=== PATIENT | female | born 1955 | race Caucasian/White ===

== ENCOUNTER 2018-02-02 07:41 | Emergency (ER) | payer BC ==
[2018-02-02 08:11] VITALS: BMI 29.0
[2018-02-02] MEDS ORDERED: SODIUM CHLORIDE 1,000 ML IV STA (08:15)
--- NOTE | 2018-02-02 08:20 | PDOC ---
History of Present Illness - General Chief Complaint: Diarrhea Stated Complaint: NAUSEA, DIARRHEA Time Seen by Provider: 02/02/18 07:58 - History of Present Illness Initial Comments: 02/02/18 09:09 "The patient is a 62 year old female with a significant past medical history of HIV (VL undetectable, CD4 count unknown) and hypertrophic cardiomyopathy who presents to the emergency department for evaluation of diarrhea. The patient reports a 2 week history of diarrhea (5-10 episodes per day) with associated diffuse abdominal cramping. The patient describes the diarrhea as soft and yellowish in color, not watery. She reports an associated symptom of nausea, but denies vomiting. Denies F/C. Denies blood in stool or dark tarry stools. The patient denies taking medication for the aforementioned symptoms. She denies sick contact and recent travels. The patient denies chest pain, shortness of breath, headache, and dizziness. Denies fevers, chills, vomiting, constipation, and hematochezia/melena. Denies dysuria, frequency, urgency, and hematuria. Allergies: NKDA Past surgical history: Ablation, Hysterectomy. Social history: No reported cigarette, alcohol, or drug use. PCP: Dr. Seymour Jc (not on staff) " Past History - Past Medical History Allergies/Adverse Reactions: Allergies Allergy/AdvReac Type Severity Reaction Status Date / Time No Known Allergies Allergy Verified 02/02/18 07:48 Home Medications: Ambulatory Orders Ciprofloxacin [Cipro -] 500 mg PO Q12H #14 tablet 02/02/18 metroNIDAZOLE [Flagyl -] 500 mg PO DAILY #7 tablet 02/02/18 Cardiac Disorders: Yes (hypertrophic cardio myopathy) COPD: No - Surgical History Cardiac Surgery: Yes - Suicide/Smoking/Psychosocial Hx Smoking History: Never smoked Review of Systems - Review of Systems Comments:: 02/02/18 09:13 "GENERAL/CONSTITUTIONAL: No fever or chills. No weakness. HEAD, EYES, EARS, NOSE AND THROAT: No change in vision. No ear pain or discharge. No sore throat. CARDIOVASCULAR: No chest pain or shortness of breath. RESPIRATORY: No cough, wheezing, or hemoptysis. GASTROINTESTINAL: (+)Nausea. (+)Diarrhea. No vomiting or constipation. GENITOURINARY: No dysuria, frequency, or change in urination. MUSCULOSKELETAL: (+)Abdominal cramping. No joint or muscle swelling or pain. No neck or back pain. SKIN: No rash NEUROLOGIC: No headache, vertigo, loss of consciousness, or change in strength/ sensation. ENDOCRINE: No increased thirst. HEMATOLOGIC/LYMPHATIC: No anemia, easy bleeding, or history of blood clots. ALLERGIC/IMMUNOLOGIC: No hives or skin allergy. " *Physical Exam - Vital Signs Last Vital Signs Temp Pulse Resp BP Pulse Ox 98.2 F 59 L 18 119/69 99 02/02/18 07:45 02/02/18 07:45 02/02/18 07:45 02/02/18 07:45 02/02/18 07:45 - Physical Exam Comments: 02/02/18 09:13 "GENERAL: Awake, alert, and fully oriented, in no acute distress. HEAD: No signs of trauma EYES: PERRLA, EOMI, sclera anicteric, conjunctiva clear ENT: Auricles normal inspection, hearing grossly normal, nares patent, oropharynx clear without exudates. Moist mucosa NECK: Nontender, no stepoffs, Normal ROM, supple, no lymphadenopathy, JVD, or masses LUNGS: Breath sounds equal, clear to auscultation bilaterally. No wheezes, and no crackles HEART: Regular rate and rhythm, normal S1 and S2, no murmurs, rubs or gallops ABDOMEN: Soft, nontender, normoactive bowel sounds. No guarding, no rebound. No masses EXTREMITIES: Normal range of motion, no edema. No clubbing or cyanosis. No cords , erythema, or tenderness NEUROLOGICAL: Cranial nerves II through XII intact. 5/5 strength and sensation in all extremities, Normal speech, normal gait, normal cerebellar function SKIN: Warm, Dry, normal turgor, no rashes or lesions noted. " ED Treatment Course - LABORATORY CBC & Chemistry Diagram: 02/02/18 08:50 02/02/18 08:50 Medical Decision Making - Medical Decision Making 02/02/18 08:18 62 F with HIV presenting with 2 weeks of diarrhea and abdominal cramps. Pt with no abdominal tenderness on exam. Reportedly normal CD4 count and undetectable VL. No indication for imaging at this time. - Labs - IVF - Empiric tx with cipro/flagyl 02/02/18 10:34 Labs wnl, eosinophils slightly elevated, unclear if this is related to pt's diarrhea. Will start abx and give GI f/u for possible colonoscopy/biopsy for further evaluation. Pt is well appearing, with normal vitals. Clinically stable for DC at this time. I discussed the physical exam findings, ancillary test results and final diagnoses with the patient. I answered all of the patient's questions. The patient was satisfied with the care received and felt comfortable with the discharge plan and treatment plan. The patient agrees to follow up with the primary care physician within 24-72 hours. *DC/Admit/Observation/Transfer Diagnosis at time of Disposition: Diarrhea - Discharge Dispostion Disposition: HOME - Prescriptions Prescriptions: Ciprofloxacin [Cipro -] 500 mg PO Q12H #14 tablet metroNIDAZOLE [Flagyl -] 500 mg PO DAILY #7 tablet - Referrals Referrals: ON STAFF,NOT [Primary Care Provider] - - Patient Instructions Printed Discharge Instructions: DI for Diarrhea and Traveler's Diarrhea -- Adult Additional Instructions: Take the antibiotics as prescribed. Call your primary doctor for a follow up appointment within 48 hours. You will need stool cultures sent to determine the cause of your diarrhea. You should also see a GI doctor if your diarrhea does not resolve within a few days. Call the number provided to make an appointment. If you experience worsening diarrhea, abdominal pain, fevers, or any other concerning symptoms, return to the ER immediately. - Post Discharge Activity - Attestations Physician Attestion: 02/02/18 10:38 I, Dr. Wei Cavazos MD, attest that this document has been prepared under my direction and personally reviewed by me in its entirety. I further attest, that it accurately reflects all work, treatment, procedures and medical decision -making performed by me.
[2018-02-02 09:28] LABS: BASO % 0.6 % (0-2.0); EOS % 27.3 % (0-4.5); HEMATOCRIT 41.4 % (32.4-45.2); HEMOGLOBIN 14.1 GM/dL (10.7-15.3); LYMPH % 24.2 % (8-40); MCH 32.8 pg (25.7-33.7); MCHC 34.1 g/dl (32.0-36.0); MEAN CELL VOLUME 96.4 fl (80-96); MEAN PLT VOLUME 9.3 fl (7.5-11.1); MONO % 5.3 % (3.8-10.2); NEUT % 42.6 % (42.8-82.8); PLATELET COUNT 174 K/MM3 (134-434); RDW 12.8 % (11.6-15.6); WHITE BLOOD COUNT 6.6 K/mm3 (4.0-10.0)
[2018-02-02 10:04] LABS: ANION GAP 4 (8-16); BLOOD UREA NITROGEN 17 mg/dL (7-18); CHLORIDE 108 mmol/L (98-107); CO2 29 mmol/L (21-32); GLUCOSE,RANDOM 97 mg/dL (74-106); POTASSIUM 4.2 mmol/L (3.5-5.1); SODIUM 141 mmol/L (136-145)
[2018-02-02 10:07] LABS: ALK PHOS 62 U/L (45-117); BILIRUBIN,TOTAL 0.2 mg/dL (0.2-1.0); CREATININE 0.9 mg/dL (0.55-1.02); SGOT/AST 14 U/L (15-37); SGPT/ALT 24 U/L (12-78); TOT PROT 7.8 g/dl (6.4-8.2)
[2018-02-02 10:51] VITALS: BP 124/85; PULSE 56; TEMP 97.9
[2018-02-02 10:52] LABS: PLATELET ESTIMATE ADEQUATE
== END 2018-02-02 10:51 | disposition home or self-care (01) ==
LOC: JER 07:41
PROC: 3E0337Z Introduction of Electrolytic and Water Balance Substance into Peripheral Vein, Percutaneous Approach (ICD-10-PCS; principal; 2018-02-02)
DX: R19.7 Diarrhea, unspecified (principal); Z21 Asymptomatic human immunodeficiency virus [HIV] infection status; I42.2 Other hypertrophic cardiomyopathy
CPT/HCPCS: 36415; 80053; 83690; 85025; 99282-25; J7030

== ENCOUNTER 2018-11-14 11:30 | Inpatient (IN) | payer BC ==
[2018-11-14] MEDS ORDERED: SODIUM CHLORIDE 1,000 ML IV ONE (12:19)
--- NOTE | 2018-11-14 12:19 | PDOC ---
History of Present Illness - General Chief Complaint: Altered Mental Status Stated Complaint: MEMORY LOSS Time Seen by Provider: 11/14/18 12:03 History Source: Patient Exam Limitations: No Limitations, Clinical Condition - History of Present Illness Initial Comments: 63 yo F w a pmh of HIV unknown CD4, HTN, HLD, and hypertrophic cardiomyopathy presents to the ER with acute onset forgetfulness. The daughters who are at bedside state that patient was completely normal yesterday when she went to sleep. They were speaking with her all day and she was her normal self. Today, when the patient woke up, the patient called her daughter crying hysterically because the patient said she could not remember what was going on and she is confused. The patient does not know how old she is, what year it is, or what month it is. She does know her birthday and that she is in a hospital in [place]. The patient endorses mild lightheadedness but feels steady on her feet. She also endorses mild chronic constipation. As per : Patient has HIV that is well controlled with an undetectable viral load and she takes ART every day and is great about taking her meds. She takes 3 pills every day but they don't know the name of the meds. also states that the patient has been losing her breath going up a flight of stairs recently. She has additionally experienced a recent 10 Ib weight loss and has not been eating or drinking well for 3-4 weeks. Her brother has the same heart condition, and her mother of the same heart condition around the same age as the patient is now. The patient denies any current chest pain, back pain, abdominal pain, headache, blurry vision, dizziness, dysuria, frequency, urgency, diarrhea, recent fevers, chills, or infections. Patient Relations Coordinator: Ronn Simons [phone]. Cell - [phone] PCP + HIV Doc: Dr. Jc [phone]. He is currently on vacation. Allergies: NKDA, NKA Social Hx: Denies smoking, drinking, or other substance usage PSH: Cardiac ablation, hysterectomy. Meds: Travastatin - 20 mg, Metoprolol - 100 mg, Flonase - nasal spray, biktarvy - 50/200/25 mg Past History - Past Medical History Allergies/Adverse Reactions: Allergies Allergy/AdvReac Type Severity Reaction Status Date / Time No Known Allergies Allergy Verified 11/14/18 11:40 Home Medications: Ambulatory Orders Bictegrav/Emtricit/Tenofov Ala [Biktarvy 50-200-25 mg Tablet] 1 tab PO DAILY Fluticasone Prop 0.05% Nasal [Flonase -] 1 spray PRN 11/14/18 Metoprolol Succinate [Toprol XL -] 100 mg PO DAILY 11/14/18 Pravastatin Sodium 20 mg PO DAILY 11/14/18 Cardiac Disorders: Yes (hypertrophic cardio myopathy) COPD: No - Surgical History Cardiac Surgery: Yes - Suicide/Smoking/Psychosocial Hx Smoking History: Never smoked Information on smoking cessation initiated: No Hx Alcohol Use: No Drug/Substance Use Hx: No Review of Systems - Review of Systems Able to Perform ROS?: Yes Comments:: CONSTITUTIONAL: Present: generalized weakness, malaise, loss of appetite, fatigue Absent: fever, chills, diaphoresis HEENT: Absent: rhinorrhea, nasal congestion, throat pain, throat swelling, difficulty swallowing, mouth swelling, ear pain, eye pain, visual Changes CARDIOVASCULAR: Absent: chest pain, syncope, palpitations, irregular heart rate, lightheadedness , peripheral edema RESPIRATORY: Present: Dyspnea with exertion Absent: cough, shortness of breath, orthopnea, wheezing, stridor, hemoptysis GASTROINTESTINAL: Present: Constipation Absent: abdominal pain, abdominal distension, nausea, vomiting, diarrhea, melena , hematochezia GENITOURINARY: Absent: dysuria, frequency, urgency, hesitancy, hematuria, flank pain, genital pain MUSCULOSKELETAL: Absent: myalgia, arthralgia, joint swelling SKIN: Absent: rash, itching, pallor HEMATOLOGIC/IMMUNOLOGIC: Absent: easy bleeding, easy bruising, lymphadenopathy, frequent infections ENDOCRINE: Present: unexplained weight loss Absent: unexplained weight gain, heat intolerance, cold intolerance NEUROLOGIC: Absent: headache, focal weakness or paresthesias, dizziness, unsteady gait, seizure, mental status changes, bladder or bowel incontinence PSYCHIATRIC: Absent: anxiety, depression, suicidal or homicidal ideation, hallucinations. *Physical Exam - Vital Signs Last Vital Signs Temp Pulse Resp BP Pulse Ox 98.2 F 61 18 120/78 100 11/14/18 11:37 11/14/18 11:37 11/14/18 11:37 11/14/18 11:37 11/14/18 11:37 - Physical Exam Comments: GENERAL: Well developed, well nourished. Awake and alert. mild distress due to confusion. HEENT: Normocephalic, atraumatic. PERRLA, EOMI. No conjunctival pallor. Sclera are non- icteric. Moist mucous membranes. Oropharynx is clear. NECK: Supple. Full ROM. No JVD. No thyromegaly. No lymphadenopathy. CARDIOVASCULAR: Regular rate and rhythm. No murmurs, rubs, or gallops. Distal pulses are 2+ and symmetric. PULMONARY: No evidence of respiratory distress. Lungs clear to auscultation bilaterally. No wheezing, rales or rhonchi. ABDOMINAL: Soft. Non-tender. Non-distended. No rebound or guarding. No organomegaly. Normoactive bowel sounds. MUSCULOSKELETAL Normal range of motion at all joints. No bony deformities or tenderness. No CVA tenderness. EXTREMITIES: No cyanosis. No clubbing. No edema. No calf tenderness. SKIN: Warm and dry. Normal capillary refill. No rashes. No jaundice. NEUROLOGICAL: Alert, awake, appropriate. Cranial nerves 2-12 intact. No deficits to light touch in face, upper extremities and lower extremities. No motor deficits in the in face, upper extremities and lower extremities. Normoreflexic in the upper and lower extremities. Normal speech. Toes are down-going bilaterally. Gait is normal without ataxia. PSYCHIATRIC: Cooperative. Good eye contact. Appropriate mood and sad affect. Heart Score/ECG Review - History History: Slightly suspicious - Electrocardiogram EKG: Non specific repolarization disturbance - Age Age: 45-65 - Risk Factors Risk Factors Heart Score: Yes Hx Hypercholesterolemia, Yes Hx Hypertension, Yes Positive family hx of cardiac disease Based on the list above the patient has:: >/=3 risk factors or Hx atherosclerotic disease - ECG Intrepretation Rhythm: Regular Rhythm - [place]: Normal - P and [place] Prominent R with upright T in V1 (true posterior TN): No Delta Wave(s) Present: No WPW: No - QRS Increased Voltage: Precordial Leads Poor R Wave Progression: No Q Wave Present: No - ST and T Non Specific ST-T Wave changes: Yes Flattened T Waves: Yes Comment:: Diffusely inverted T waves - ECG Impressions Normal ECG: No Non-specific ST Elevation: No Ischemic Changes: Yes (T wave inversions) Bradycardia: No Torsades sherry Pointes: No WPW: No ED Treatment Course - LABORATORY CBC & Chemistry Diagram: 11/14/18 13:09 11/14/18 13:09 Medical Decision Making - Medical Decision Making 63 yo F w a pmh of HIV unknown CD4, HTN, HLD, and hypertrophic cardiomyopathy presents to the ER with acute onset forgetfulness starting this morning. VS: WNL DDx IBNLT: HIV related disease, Transient global amnesia, CVA/TIA, ACS/TN, orthostatic hypotension. - Recent loss of appetite, and weight loss Plan: Labs, Urine, EKG, CXR, Head CT, Admit. - Will get Neuro consult - Dr. Melissa - Will call PCP office to obtain CD4 count info - Called up Dr. Jc's office: on Aug 27 2018 the HIV viral load was 34 and her CD4 count was 926. Troponin elevated to 0.5 Spoke with Patient Relations Coordinator: She saw the patient on Sunday. hx of HCM, septal ablation. 2 days ago patient mentioned she had Afib. Cardio doc has done holter monitors wo seeing Afib but the patient does have non-sustained VT occasionally. Dr. Trevino [phone] would like a call back after the head CT is performed. - Patient Relations Coordinator was made aware of the positive troponin of 0.5 She recommends trending the troponin. - Her coronary calcium score was 27 in Jul 2017 Primary vessel captain believes this is demand but wants the troponins trended. - She does not have access to this hospital so would like a vessel captain in the hospital to assess her as well. Microblogged for admission at 2:30 - Patient accepted for admission to Dr. Kemp's service *DC/Admit/Observation/Transfer Diagnosis at time of Disposition: Memory loss of unknown cause, Elevated troponin - Discharge Dispostion Condition at time of disposition: Stable Decision to Admit order: Yes - Referrals - Patient Instructions - Post Discharge Activity
--- NOTE | 2018-11-14 12:55 | PDOC ---
Attending Attestation - Resident Resident Name: Syed Cuevas - ED Attending Attestation I have performed the following: I have examined & evaluated the patient, The case was reviewed & discussed with the resident, I agree w/resident's findings & plan, Exceptions are as noted - HPI HPI: 11/14/18 12:52 63-year-old female history of HIV with presumably normal viral load, hypertension, hyperlipidemia, hypertrophic cardiomyopathy presents with amnesia. This morning, the family noted the patient has been very forgetful. However, denies any headaches, nausea, vomiting, fevers, chills, pain. The patient is alert and aware oriented 2. The symptoms are not waxing or waning. The family reports that the patient did have a history of a mini stroke. - Physicial Exam PE: 11/14/18 12:52 GENERAL: Awake, alert, oriented x 2, amnesitic, in no acute distress HEAD: No signs of trauma EYES: EOMI, sclera anicteric, conjunctiva clear ENT: Auricles normal inspection, hearing grossly normal, nares patent, Moist mucosa NECK: Normal ROM, supple, LUNGS: Breath sounds equal, clear to auscultation bilaterally. No wheezes, and no crackles HEART: Regular rate and rhythm, normal S1 and S2, no murmurs, rubs or gallops ABDOMEN: Soft, nontender,. No guarding, no rebound. No masses EXTREMITIES: Normal range of motion, no edema. No clubbing or cyanosis. No cords, erythema, or tenderness NEUROLOGICAL: Cranial nerves II through XII intact. Normal speech, 5/5 strength upper and lower extremities. No pronator drift. No dysmetria. No dysarthria. No heel to nunez. SKIN: Warm, Dry, normal turgor, no rashes or lesions noted. - Medical Decision Making 11/14/18 12:51 Vital Signs Temp Pulse Resp BP Pulse Ox 98.2 F 61 18 120/78 100 11/14/18 11:37 11/14/18 11:37 11/14/18 11:37 11/14/18 11:37 11/14/18 11:37 Differential includes stroke versus transient global amnesia. We'll need a head CT, labs, urinalysis. The patient will need a neuro consult and admission to the hospital.Will likely need MRI. 11/14/18 12:55 Not a TPA candidate. NIHSS 0. Too low of NIHSS. 11/14/18 14:[address] negative. CBC, BMP 11/14/18 13:09 11/14/18 14:17 CMP Sodium 140 mmol/L (136-145) 11/14/18 13:09 Potassium 5.1 mmol/L (3.5-5.1) 11/14/18 13:09 Chloride 106 mmol/L (98-107) 11/14/18 13:09 Carbon Dioxide 28 mmol/L (21-32) 11/14/18 13:09 Anion Gap 7 MMOL/L (8-16) L 11/14/18 13:09 BUN 16 mg/dL (7-18) 11/14/18 13:09 Creatinine 1.0 mg/dL (0.55-1.3) 11/14/18 13:09 Creat Clearance w eGFR 56.18 (>60) 11/14/18 13:09 Random Glucose 113 mg/dL (74-106) H 11/14/18 13:09 Calcium 9.3 mg/dL (8.5-10.1) 11/14/18 13:09 Total Bilirubin 0.4 mg/dL (0.2-1) 11/14/18 13:09 AST 32 U/L (15-37) 11/14/18 13:09 ALT 29 U/L (13-61) 11/14/18 13:09 Alkaline Phosphatase 56 U/L (45-117) 11/14/18 13:09 Ammonia 10.20 umol/L (11-32) L 11/14/18 13:09 Creatine Kinase 174 U/L (26-192) 11/14/18 13:09 Troponin I 0.50 ng/ml (0.00-0.05) H 11/14/18 13:09 Total Protein 8.3 g/dl (6.4-8.2) H 11/14/18 13:09 Albumin 4.4 g/dl (3.4-5.0) 11/14/18 13:09 Trop 0.50, but no chest pain. Will give aspirin. Will consult cardiology and neuro for further management Admit Heart Score/ECG Review #1 ECG reviewed & interpreted by me at: 12:00 11/14/18 13:27 NSR 60, LVH, TWI I, aVL, V2-V6, no std/troy, QTC 464 msec NIH Stroke Scale - Last Known Well Date/Time & Onset Date Last Known Well: 11/14/18 Time Last Known Well: 09:00 - Initial Evaluation Level of consciousness: Alert Ask patient the month and their age: Answers both correctly Ask patient to open & close eyes; make fist and let go: Obeys both correctly Best gaze (horizontal eye movement): Normal Visual field testing: No visual field loss Facial paresis (Show teeth/raise eyebrows/close eyes tight): Normal symmetrical movement Motor Function: Left Arm: Normal Motor Function: Right Arm: Normal (extends arm 90 (or 45) degrees for 10 seconds without drift Motor Function: Left Leg: Normal (extends leg 30 degrees for 5 seconds without drift) Motor Function: Right Leg: Normal (extends leg 30 degrees for 5 seconds without drift) Limb Ataxia: No ataxia Sensory(Use pinprick test arms,legs,trunk,face/side to side): Normal Best language (Describe picture, name items, read sentences): No Aphasia Dysarthria (read several words): Normal articulation Extinction and Inattention: No abnormality - Total Score NIH Stroke Scale Score: 0
[2018-11-14 13:33] LABS: BASO % 0.4 % (0-2.0); EOS % 0.7 % (0-4.5); HEMATOCRIT 43.1 % (32.4-45.2); HEMOGLOBIN 14.4 GM/dL (10.7-15.3); LYMPH % 14.7 % (8-40); MCH 32.2 pg (25.7-33.7); MCHC 33.5 g/dl (32.0-36.0); MEAN PLT VOLUME 9.4 fl (7.5-11.1); MONO % 4.5 % (3.8-10.2); NEUT % 79.7 % (42.8-82.8); PLATELET COUNT 214 K/MM3 (134-434); RBC 4.49 M/mm3 (3.60-5.2); RDW 13.1 % (11.6-15.6); WHITE BLOOD COUNT 7.8 K/mm3 (4.0-10.0)
[2018-11-14 13:46] LABS: INR 0.98 (0.83-1.09); PROTHROMBIN TIME (PATIENT) 11.6 SEC (9.7-13.0)
[2018-11-14 14:12] LABS: ALBUMIN 4.4 g/dl (3.4-5.0); ALK PHOS 56 U/L (45-117); ANION GAP 7 MMOL/L (8-16); BILIRUBIN,TOTAL 0.4 mg/dL (0.2-1); BLOOD UREA NITROGEN 16 mg/dL (7-18); CALCIUM 9.3 mg/dL (8.5-10.1); CHLORIDE 106 mmol/L (98-107); CO2 28 mmol/L (21-32); GLUCOSE,RANDOM 113 mg/dL (74-106); POTASSIUM 5.1 mmol/L (3.5-5.1); SGOT/AST 32 U/L (15-37); SGPT/ALT 29 U/L (13-61); SODIUM 140 mmol/L (136-145); TOT PROT 8.3 g/dl (6.4-8.2)
[2018-11-14] MEDS ORDERED: ASPIRIN 325 MG TABLET PO ONE (14:17)
[2018-11-14] MEDS ORDERED: ASPIRIN 325 MG TABLET ONE (14:43)
[2018-11-14 16:09] LABS: URINE APPEARANCE CLEAR; URINE BILIRUBIN NEGATIVE (NEGATIVE); URINE COLOR YELLOW; URINE GLUCOSE (UA) NEGATIVE (NEGATIVE); URINE KETONE NEGATIVE (NEGATIVE); URINE LEUK ESTERASE NEGATIVE (NEGATIVE); URINE NITRITE NEGATIVE (NEGATIVE); URINE PROTEIN NEGATIVE (NEGATIVE); URINE UROBILINOGEN 0.2 mg/dL (0.2-1.0)
--- NOTE | 2018-11-14 16:22 | HP ---
CHIEF COMPLAINT: PCP: Database Administration Project Manager: Ronn Simons [phone]. Cell - [phone] PCP + HIV Doc: Dr. Jc [phone]. He is currently on vacation. HISTORY OF PRESENT ILLNESS: 63 yo F PMH of HIV (per PCP, viral load 34 and CD4 count 926 on Aug 27 2018), HTN, HLD, TIA?, and hypertrophic cardiomyopathy p/w acute onset confusion and short term amnesia. The daughters who are at bedside state that patient was completely normal yesterday when she went to sleep. They were speaking with her all day and she was her normal self. Today, when the patient woke up she was fine, spoke w/ daughter at 9am and was fine. At 915am pt called her daughter back and was crying hysterically because the patient said she could not remember what was going on and she is confused. The patient endorses mild lightheadedness but feels steady on her feet. She also endorses mild chronic constipation. Per ED note: The patient did not know how old she is, what year it is, or what month it is. She does know her birthday and that she is in a hospital in [place]. However, currently does know the month and the year and on MMSE scored a 26, ( pt could not recall 3 items, and date). pt has no issues w/ intermediate memory, remembers when her daughter is getting , and what she did yesterday. Denies any current chest pain, back pain, abdominal pain, headache, blurry vision, dizziness, dysuria, frequency, urgency, diarrhea, recent fevers, chills , or infections, herbal med use, hallucinations, recent stressors. As per : Patient has HIV that is well controlled and she takes ART every day and is great about taking her meds. also states that the patient has been losing her breath going up a flight of stairs recently. She has additionally experienced a recent 10 Ib weight loss, not been eating or drinking well for 3-4 weeks, but this is intentional as pt has been trying to lose weight. Per ED: Spoke with pt's Database Administration Project Manager, She saw the patient on Sunday. hx of HCM , septal ablation. 2 days ago patient mentioned she had Afib. Cardio doc has done holter monitors wo seeing Afib but the patient does have non-sustained VT occasionally. Her coronary calcium score was 27 in Jul 2017 ER course was notable for: (1)EKG NSR 60, LVH, TWI I, aVL, V2-V6, no std/troy, QTC 464 msec. Trop 0.50, but no chest pain. (2)ASA 325, 1L NS (3)CXR no acute pathology, Head CT negative. NIHSS 0 Recent Travel: denies PAST MEDICAL HISTORY: Database Administration Project Manager: Ronn Simons [phone]. Cell - [phone] PCP + HIV Doc: Dr. Jc [phone]. He is currently on vacation. PAST SURGICAL HISTORY: Cardiac ablation, hysterectomy. Social History: Smoking: denies Alcohol:denies Drugs: denies Family History: brother and mom hypertrophic cardiomyopathy. mother from it around 60yrs old Allergies No Known Allergies Allergy (Verified 11/14/18 11:40) HOME MEDICATIONS: Home Medications Medication Instructions Recorded Ciprofloxacin [Cipro -] 500 mg PO Q12H #14 tablet 02/02/18 metroNIDAZOLE [Flagyl -] 500 mg PO DAILY #7 tablet 02/02/18 Meds: pravastatin - 20 mg, Metoprolol - 100 mg, Flonase - nasal spray, biktarvy - 50/200/25 mg per PCP records REVIEW OF SYSTEMS per HPI PHYSICAL EXAMINATION Vital Signs - 24 hr 11/14/18 11/14/18 11:37 15:20 Temperature 98.2 F 98.4 F Pulse Rate 61 Pulse Rate [ 67 Apical] Respiratory 18 16 Rate Blood Pressure 120/78 Blood Pressure 146/67 [Right] O2 Sat by Pulse 100 94 L Oximetry (%) GENERAL: AOX3 NAD, NIHSS 0, MMSE 26, short term amnesia, intermediate memory appears to be intact HEAD: NCAT EYES: PERRLA, EOMI, sclera anicteric, conjunctiva clear. No lid lag. EARS, NOSE, THROAT: nares patent, oropharynx clear without exudates. MMM NECK: Normal range of motion, supple without lymphadenopathy, JVD, or masses. LUNGS: CTAB HEART: RRR, normal S1 and S2 without m/r/g ABDOMEN: Soft, NTND, normoactive bowel sounds, no guarding, no rebound, no masses. No hepatomegaly or splenomegaly. MUSCULOSKELETAL: Normal range of motion at all joints. No bony deformities or tenderness. No CVA tenderness. UPPER EXTREMITIES: 2+ pulses, warm, well-perfused. No cyanosis. No clubbing. No peripheral edema. LOWER EXTREMITIES: 2+ pulses, warm, well-perfused. No calf tenderness. No peripheral edema. NEUROLOGICAL: Cranial nerves II-XII intact. Normal speech. Normal gait. FNT nl , sensation strength reflexes grossly intact PSYCHIATRIC: Cooperative. Good eye contact. Appropriate mood and affect. SKIN: Warm, dry, normal turgor, no rashes or lesions noted, normal capillary refill. Laboratory Results - last 24 hr 11/14/18 11/14/18 11/14/18 13:09 13:09 13:09 WBC 7.8 RBC 4.49 Hgb 14.4 Hct 43.1 MCV 96.0 MCH 32.2 MCHC 33.5 RDW 13.1 Plt Count 214 D MPV 9.4 Absolute Neuts (auto) 6.2 Neutrophils % 79.7 D Lymphocytes % 14.7 D Monocytes % 4.5 Eosinophils % 0.7 D Basophils % 0.4 Nucleated RBC % 0 PT with INR 11.60 INR 0.98 Sodium 140 Potassium 5.1 Chloride 106 Carbon Dioxide 28 Anion Gap 7 L BUN 16 Creatinine 1.0 Creat Clearance w eGFR 56.18 Random Glucose 113 H Calcium 9.3 Total Bilirubin 0.4 AST 32 ALT 29 Alkaline Phosphatase 56 Ammonia Creatine Kinase 174 Creatine Kinase Index 1.6 CK-MB (CK-2) 2.8 Troponin I 0.50 H Total Protein 8.3 H Albumin 4.4 Urine Color Urine Appearance Urine pH Ur Specific [place] Urine Protein Urine Glucose (UA) Urine Ketones Urine Blood Urine Nitrite Urine Bilirubin Urine Urobilinogen Ur Leukocyte Esterase Blood Type Antibody Screen 11/14/18 11/14/18 11/14/18 13:09 13:09 15:05 WBC RBC Hgb Hct MCV MCH MCHC RDW Plt Count MPV Absolute Neuts (auto) Neutrophils % Lymphocytes % Monocytes % Eosinophils % Basophils % Nucleated RBC % PT with INR INR Sodium Potassium Chloride Carbon Dioxide Anion Gap BUN Creatinine Creat Clearance w eGFR Random Glucose Calcium Total Bilirubin AST ALT Alkaline Phosphatase Ammonia 10.20 L Creatine Kinase Creatine Kinase Index CK-MB (CK-2) Troponin I Total Protein Albumin Urine Color Yellow Urine Appearance Clear Urine pH 8.0 Ur Specific [place] 1.004 L Urine Protein Negative Urine Glucose (UA) Negative Urine Ketones Negative Urine Blood Negative Urine Nitrite Negative Urine Bilirubin Negative Urine Urobilinogen 0.2 Ur Leukocyte Esterase Negative Blood Type O POSITIVE Antibody Screen Negative ASSESSMENT/PLAN: 63 yo F PMH of HIV (per PCP, viral load 34 and CD4 count 926 on 08/27/18), HTN, HLD, TIA?, and hypertrophic cardiomyopathy p/w acute onset confusion and short term amnesia. Acute Encephalopathy (metabolic vs infx) vs stroke vs seizure - pt w/ short term amnesia, AOX3, neuro exam nl, long term care pharmacist memory appears to be intact, NIHSS 0, MMSE 26 (pt could not recall 3 items, and date), VSS, afebrile no leukocytosis or other signs of infx, CXR no acute pathology, Head CT negative. labs grossly unremarkable, ammonia nl, UA neg. will require more lab and imaging for complete w/u to r/o metabolic vs infectious causes. s/p ASA 325, 1L NS in ED Neuro consult: Belén Cardio consult: Rito ID consult: Matthias MRI/MRA w/o con ECHO carotid u/s f/u TSH, RPR, B12, Folate, Lipid panel, A1c, HSV, Lyme, CD4, HIV viral load, U- tox consider LP if labs and MRI are non diagnostic aspiration precautions seizure precautions Neuro checks PT HIV - appears stable (per PCP, viral load 34 and CD4 count 926 on 08/27/18). Only is aware of her HIV status, daughters not aware CD4, HIV viral load ID consult: Matthias c/w biktarvy Tropinemia - likely 2/2 demand ischemia but should r/o ACS. EKG NSR 60, LVH, TWI I, aVL, V2-V6, no std/troy, QTC 464 msec. Trop 0.50, but no chest pain. coronary calcium score was 27 in Jul 2017 -trend trop to peak -s/p ASA 325 -c/w statin/BB HTN c/w home metoprolol 100 HLD c/w home statin mild chronic constipation bowel regimen - Colace/senna/miralax FEN po hydration replete prn sodium/cholesterol diet ppx SCD, hold off on AC for now in case of late or slow bleed causing sxs Dispo tele Visit type - Emergency Visit Emergency Visit: Yes ED Registration Date: 11/14/18 Care time: The patient presented to the Emergency Department on the above date and was hospitalized for further evaluation of their emergent condition. - New Patient This patient is new to me today: Yes Date on this admission: 11/14/18 - Critical Care Critical Care patient: No
[2018-11-14] MEDS ORDERED: ACETAMINOPHEN 325 MG TABLET (FP) PO ONE (16:32)
[2018-11-14 18:13] VITALS: BMI 27.8
[2018-11-14] MEDS: POLYETHYLENE GLYCOL 3350 119 GM BTL PO SCH (18:22)
--- NOTE | 2018-11-14 18:37 | PN ---
Teaching Attending Note Name of Resident: Jose Alejandro Sarmiento ATTENDING PHYSICIAN STATEMENT I saw and evaluated the patient. I reviewed the resident's note and discussed the case with the resident. I agree with the resident's findings and plan as documented. SUBJECTIVE: No complaints except for headache and memory loss. No visual disturbance, limb numbness/weakness. No fall, head injury, loss of consciousness. No fever/chills/photophobia/neck stiffness. OBJECTIVE: Afebrile, Hemodynamically Stable. Last Vital Signs Temp Pulse Resp BP Pulse Ox 98.4 F 67 18 152/82 97 11/14/18 17:27 11/14/18 17:27 11/14/18 17:27 11/14/18 17:27 11/14/18 17:27 HEENT - Atraumatic, Normocephalic. Neuro - AAO x 2 - did not know the year. SOFIE. Tone/Power normal all 4 extremities Heart - S1, S2, RRR Lungs - clear to auscultation, no crackles/wheeze. Abdomen - Soft, non-tender. Bowel Sounds normal Extremities - no edema. No calf tenderness Laboratory Results - last 24 hr 11/14/18 11/14/18 11/14/18 13:09 13:09 13:09 WBC 7.8 RBC 4.49 Hgb 14.4 Hct 43.1 MCV 96.0 MCH 32.2 MCHC 33.5 RDW 13.1 Plt Count 214 D MPV 9.4 Absolute Neuts (auto) 6.2 Neutrophils % 79.7 D Lymphocytes % 14.7 D Monocytes % 4.5 Eosinophils % 0.7 D Basophils % 0.4 Nucleated RBC % 0 PT with INR 11.60 INR 0.98 Sodium 140 Potassium 5.1 Chloride 106 Carbon Dioxide 28 Anion Gap 7 L BUN 16 Creatinine 1.0 Creat Clearance w eGFR 56.18 Random Glucose 113 H Calcium 9.3 Total Bilirubin 0.4 AST 32 ALT 29 Alkaline Phosphatase 56 Ammonia Creatine Kinase 174 Creatine Kinase Index 1.6 CK-MB (CK-2) 2.8 Troponin I 0.50 H Total Protein 8.3 H Albumin 4.4 Urine Color Urine Appearance Urine pH Ur Specific [place] Urine Protein Urine Glucose (UA) Urine Ketones Urine Blood Urine Nitrite Urine Bilirubin Urine Urobilinogen Ur Leukocyte Esterase Blood Type Antibody Screen 11/14/18 11/14/18 11/14/18 13:09 13:09 15:05 WBC RBC Hgb Hct MCV MCH MCHC RDW Plt Count MPV Absolute Neuts (auto) Neutrophils % Lymphocytes % Monocytes % Eosinophils % Basophils % Nucleated RBC % PT with INR INR Sodium Potassium Chloride Carbon Dioxide Anion Gap BUN Creatinine Creat Clearance w eGFR Random Glucose Calcium Total Bilirubin AST ALT Alkaline Phosphatase Ammonia 10.20 L Creatine Kinase Creatine Kinase Index CK-MB (CK-2) Troponin I Total Protein Albumin Urine Color Yellow Urine Appearance Clear Urine pH 8.0 Ur Specific [place] 1.004 L Urine Protein Negative Urine Glucose (UA) Negative Urine Ketones Negative Urine Blood Negative Urine Nitrite Negative Urine Bilirubin Negative Urine Urobilinogen 0.2 Ur Leukocyte Esterase Negative Blood Type O POSITIVE Antibody Screen Negative Current Medications Generic Name Dose Route Start Last Admin Trade Name Freq PRN Reason Stop Dose Admin Atorvastatin Calcium 10 mg 11/15/18 22:00 Lipitor - PO HS FRANCO Docusate Sodium 100 mg 11/14/18 22:00 Colace - PO TID FRANCO Metoprolol Succinate 100 mg 11/15/18 10:00 Toprol Xl - PO DAILY FRANCO Non-Formulary Medication 1 tab 11/15/18 10:00 Bictegrav/Emtricit/Tenofov Ala PO DAILY FRANCO Polyethylene Glycol 17 gm 11/14/18 16:45 11/14/18 18:22 Miralax (For Daily Use) - PO Not Given DAILY FRANCO Senna 2 tab 11/14/18 22:00 Senna - PO HS [facility] Home Medications Medication Instructions Recorded Bictegrav/Emtricit/Tenofov Ala 1 tab PO DAILY 11/14/18 [Biktarvy 50-200-25 mg Tablet] Fluticasone Prop 0.05% Nasal 1 spray PRN 11/14/18 [Flonase -] Metoprolol Succinate [Toprol XL -] 100 mg PO DAILY 11/14/18 Pravastatin Sodium 20 mg PO DAILY 11/14/18 ASSESSMENT AND PLAN: 63 year old female with HIV on HAART (follows with Dr. Jc), HTN, HLD, Hypertrophic Cardiomyopathy, Arrhythmia s/p septal ablation, presents with acute confusion and short-term amnesia. 1. Acute Encephalopathy - metabolic versus infectious CT Brain negative Ammonia level normal. MRI/MRA requested. B12/RPR/TSH levels requested. UA and Utox requested. Neurology consulted - may need CSF sampling for viral infection. Lyme serology requested. 2. HIV on HAART ID consulted. Prior CD 4 count and viral load 926 and 34 respectively) Will repeat counts. 3. History of Hypertrophic Cardiomyopathy and arrhythmia s/p Ablation ECG - NSR 60, LVH with repolarization abnormalities, T wave inversion TropI 0.5, likely baseline elevation - no chest pain/palpitations Echo requested and Cardiology consulted. On Aspirin, BB, Statin 4. HTN - Continue Metoprolol. 5. HLD - Continue Statin DVT Px - SCDs.
[2018-11-14] MEDS ORDERED: ACETAMINOPHEN 500 MG TABLET (FP) PO ONE (21:23)
[2018-11-14] MEDS: DOCUSATE SODIUM 100 MG CAPSULE (FP) PO SCH (21:47)
[2018-11-14] MEDS: SENNOSIDES 8.6MG TABLET (FP) PO SCH (21:47)
--- NOTE | 2018-11-15 00:04 | PN ---
Progress Note (short form) - Note Progress Note: Paged for Pt. complaining of nasal congestion and headache. Trial of Tylenol x 2 with no effect. On physical exam Pt. has frontal sinus and bilateral maxillary sinus tenderness. On inspection of the nares there is mild inflammation. On inspection of the ears, there is mild erythema if the right tympanic membrane. Pt. endorses increased hearing form the right ear compared to the left. Will start fluticasone nasal spay and give 1mg morphine for pain. Consider ENT outpatient consult as Pt. states she has been dealing with this issue for some time and has history of sinus infections.
[2018-11-15] MEDS ORDERED: FLUTICASONE PROP 0.05% 16 GM NASAL SPRAY NS ONE (03:00)
[2018-11-15] MEDS ORDERED: MORPHINE SULFATE 2 MG/ML VIAL IVPUSH ONE (03:00)
[2018-11-15] MEDS: DOCUSATE SODIUM 100 MG CAPSULE (FP) PO SCH ×3 (05:39→21:42)
[2018-11-15 06:24] LABS: BASO % 0.4 % (0-2.0); EOS % 2.1 % (0-4.5); HEMATOCRIT 38.3 % (32.4-45.2); HEMOGLOBIN 12.9 GM/dL (10.7-15.3); LYMPH % 42.3 % (8-40); MCH 31.7 pg (25.7-33.7); MCHC 33.6 g/dl (32.0-36.0); MEAN CELL VOLUME 94.2 fl (80-96); MEAN PLT VOLUME 9.1 fl (7.5-11.1); MONO % 8.6 % (3.8-10.2); NEUT % 46.6 % (42.8-82.8); PLATELET COUNT 181 K/MM3 (134-434); RBC 4.06 M/mm3 (3.60-5.2); RDW 13.4 % (11.6-15.6); WHITE BLOOD COUNT 5.1 K/mm3 (4.0-10.0)
[2018-11-15] MEDS ORDERED: morphine SULFATE 4 MG/ML VIAL IVPUSH ONE (06:36)
[2018-11-15 06:51] LABS: ALBUMIN 3.6 g/dl (3.4-5.0); ALK PHOS 43 U/L (45-117); ANION GAP 4 MMOL/L (8-16); BILIRUBIN,TOTAL 0.4 mg/dL (0.2-1); BLOOD UREA NITROGEN 12 mg/dL (7-18); CALCIUM 8.6 mg/dL (8.5-10.1); CHLORIDE 109 mmol/L (98-107); CHOLESTEROL 159 mg/dL (50-200); CO2 28 mmol/L (21-32); CREATININE 0.9 mg/dL (0.55-1.3); GLUCOSE,RANDOM 95 mg/dL (74-106); HDL CHOLESTEROL 55 mg/dL (40-60); MAGNESIUM 2.4 mg/dL (1.8-2.4); PHOSPHOROUS 3.5 mg/dL (2.5-4.9); SGOT/AST 15 U/L (15-37); SGPT/ALT 24 U/L (13-61); SODIUM 141 mmol/L (136-145); TOT PROT 6.7 g/dl (6.4-8.2); TRIGLYCERIDES 79 mg/dL (0-150)
--- NOTE | 2018-11-15 07:10 | PN ---
Physical Exam: SUBJECTIVE: Patient seen and examined at bedside. overnight some nasal congestion and GEORGES, medicated w/ flonase/morphine w/ appropriate effect. 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 denies fever, chills, cp ,sob, n/v/d, urinary sxs. At admission: NIHSS 0, MMSE 26 OBJECTIVE: Vital Signs Period Temp Pulse Resp BP Sys/[place] Pulse Ox Last 24 Hr 98.2 F-98.4 F 55-67 16-18 120-170/67-90 94-100 GENERAL: AOX3 NAD, short term amnesia, jail memory appears to be intact HEAD: NCAT EYES: PERRLA, EOMI, sclera anicteric, conjunctiva clear. No lid lag. EARS, NOSE, THROAT: nares patent, oropharynx clear without exudates. MMM NECK: Normal range of motion, supple without lymphadenopathy, JVD, or masses. LUNGS: CTAB HEART: RRR, normal S1 and S2 without m/r/g ABDOMEN: Soft, NTND, normoactive bowel sounds, no guarding, no rebound, no masses. No hepatomegaly or splenomegaly. MUSCULOSKELETAL: Normal range of motion at all joints. No bony deformities or tenderness. No CVA tenderness. UPPER EXTREMITIES: 2+ pulses, warm, well-perfused. No cyanosis. No clubbing. No peripheral edema. LOWER EXTREMITIES: 2+ pulses, warm, well-perfused. No calf tenderness. No peripheral edema. NEUROLOGICAL: Cranial nerves II-XII intact. Normal speech. Normal gait. FNT nl , sensation strength reflexes grossly intact PSYCHIATRIC: Cooperative. Good eye contact. Appropriate mood and affect. SKIN: Warm, dry, normal turgor, no rashes or lesions noted, normal capillary refill. Laboratory Results - last 24 hr 11/14/18 11/14/18 11/14/18 13:09 13:09 13:09 WBC 7.8 RBC 4.49 Hgb 14.4 Hct 43.1 MCV 96.0 MCH 32.2 MCHC 33.5 RDW 13.1 Plt Count 214 D MPV 9.4 Absolute Neuts (auto) 6.2 Neutrophils % 79.7 D Lymphocytes % 14.7 D Monocytes % 4.5 Eosinophils % 0.7 D Basophils % 0.4 Nucleated RBC % 0 PT with INR 11.60 INR 0.98 Sodium 140 Potassium 5.1 Chloride 106 Carbon Dioxide 28 Anion Gap 7 L BUN 16 Creatinine 1.0 Creat Clearance w eGFR 56.18 Random Glucose 113 H Hemoglobin A1c % Calcium 9.3 Phosphorus Magnesium Total Bilirubin 0.4 AST 32 ALT 29 Alkaline Phosphatase 56 Ammonia Creatine Kinase 174 Creatine Kinase Index 1.6 CK-MB (CK-2) 2.8 Troponin I 0.50 H Total Protein 8.3 H Albumin 4.4 Triglycerides Cholesterol Total LDL Cholesterol HDL Cholesterol Vitamin B12 Serum Folate TSH Urine Color Urine Appearance Urine pH Ur Specific [place] Urine Protein Urine Glucose (UA) Urine Ketones Urine Blood Urine Nitrite Urine Bilirubin Urine Urobilinogen Ur Leukocyte Esterase Blood Type Antibody Screen 11/14/18 11/14/18 11/14/18 13:09 13:09 15:05 WBC RBC Hgb Hct MCV MCH MCHC RDW Plt Count MPV Absolute Neuts (auto) Neutrophils % Lymphocytes % Monocytes % Eosinophils % Basophils % Nucleated RBC % PT with INR INR Sodium Potassium Chloride Carbon Dioxide Anion Gap BUN Creatinine Creat Clearance w eGFR Random Glucose Hemoglobin A1c % Calcium Phosphorus Magnesium Total Bilirubin AST ALT Alkaline Phosphatase Ammonia 10.20 L Creatine Kinase Creatine Kinase Index CK-MB (CK-2) Troponin I Total Protein Albumin Triglycerides Cholesterol Total LDL Cholesterol HDL Cholesterol Vitamin B12 Serum Folate TSH Urine Color Yellow Urine Appearance Clear Urine pH 8.0 Ur Specific [place] 1.004 L Urine Protein Negative Urine Glucose (UA) Negative Urine Ketones Negative Urine Blood Negative Urine Nitrite Negative Urine Bilirubin Negative Urine Urobilinogen 0.2 Ur Leukocyte Esterase Negative Blood Type O POSITIVE Antibody Screen Negative 11/14/18 11/14/18 11/14/18 18:30 18:30 18:30 WBC RBC Hgb Hct MCV MCH MCHC RDW Plt Count MPV Absolute Neuts (auto) Neutrophils % Lymphocytes % Monocytes % Eosinophils % Basophils % Nucleated RBC % PT with INR INR Sodium Potassium Chloride Carbon Dioxide Anion Gap BUN Creatinine Creat Clearance w eGFR Random Glucose Hemoglobin A1c % Calcium Phosphorus Magnesium Total Bilirubin AST ALT Alkaline Phosphatase Ammonia Creatine Kinase Creatine Kinase Index CK-MB (CK-2) Troponin I 0.49 H Total Protein Albumin Triglycerides Cholesterol Total LDL Cholesterol HDL Cholesterol Vitamin B12 500 Serum Folate 17 TSH 2.47 Urine Color Urine Appearance Urine pH Ur Specific [place] Urine Protein Urine Glucose (UA) Urine Ketones Urine Blood Urine Nitrite Urine Bilirubin Urine Urobilinogen Ur Leukocyte Esterase Blood Type O POSITIVE Antibody Screen 11/14/18 11/15/18 11/15/18 18:30 00:05 05:30 WBC RBC Hgb Hct MCV MCH MCHC RDW Plt Count MPV Absolute Neuts (auto) Neutrophils % Lymphocytes % Monocytes % Eosinophils % Basophils % Nucleated RBC % PT with INR INR Sodium 141 Potassium 4.0 Chloride 109 H Carbon Dioxide 28 Anion Gap 4 L BUN 12 Creatinine 0.9 Creat Clearance w eGFR 63.44 Random Glucose 95 Hemoglobin A1c % Calcium 8.6 Phosphorus 3.5 Magnesium 2.4 Total Bilirubin 0.4 AST 15 ALT 24 Alkaline Phosphatase 43 L Ammonia Creatine Kinase Creatine Kinase Index CK-MB (CK-2) Troponin I Cancelled 0.46 H Total Protein 6.7 Albumin 3.6 Triglycerides 79 Cholesterol 159 Total LDL Cholesterol 91 HDL Cholesterol 55 Vitamin B12 Serum Folate TSH Urine Color Urine Appearance Urine pH Ur Specific [place] Urine Protein Urine Glucose (UA) Urine Ketones Urine Blood Urine Nitrite Urine Bilirubin Urine Urobilinogen Ur Leukocyte Esterase Blood Type Antibody Screen 11/15/18 05:30 WBC RBC Hgb Hct MCV MCH MCHC RDW Plt Count MPV Absolute Neuts (auto) Neutrophils % Lymphocytes % Monocytes % Eosinophils % Basophils % Nucleated RBC % PT with INR INR Sodium Potassium Chloride Carbon Dioxide Anion Gap BUN Creatinine Creat Clearance w eGFR Random Glucose Hemoglobin A1c % 5.6 Calcium Phosphorus Magnesium Total Bilirubin AST ALT Alkaline Phosphatase Ammonia Creatine Kinase Creatine Kinase Index CK-MB (CK-2) Troponin I Total Protein Albumin Triglycerides Cholesterol Total LDL Cholesterol HDL Cholesterol Vitamin B12 Serum Folate TSH Urine Color Urine Appearance Urine pH Ur Specific [place] Urine Protein Urine Glucose (UA) Urine Ketones Urine Blood Urine Nitrite Urine Bilirubin Urine Urobilinogen Ur Leukocyte Esterase Blood Type Antibody Screen Active Medications Generic Name Dose Route Start Last Admin Trade Name Freq PRN Reason Stop Dose Admin Atorvastatin Calcium 10 mg 11/15/18 22:00 Lipitor - PO HS FRANCO Docusate Sodium 100 mg 11/14/18 22:00 11/15/18 05:39 Colace - PO 100 mg TID FRANCO Administration Metoprolol Succinate 100 mg 11/15/18 10:00 Toprol Xl - PO DAILY FRANCO Morphine Sulfate 1 mg 11/15/18 06:36 Morphine Injection - IVPUSH 11/15/18 06:37 ONCE ONE Non-Formulary Medication 1 tab 11/15/18 10:00 Bictegrav/Emtricit/Tenofov Ala PO DAILY FRANCO Polyethylene Glycol 17 gm 11/14/18 16:45 11/14/18 18:22 Miralax (For Daily Use) - PO Not Given DAILY FRANCO Senna 2 tab 11/14/18 22:00 11/14/18 21:47 Senna - PO 2 tab HS FRANCO Administration ECHO 11/15/18 Interpretation Summary Left ventricular systolic function is normal. Ejection Fraction = 60-65%. Apical hypertrophy is present. The right ventricle is normal in size and function. There is mild tricuspid regurgitation. Right ventricular systolic pressure is normal. Trivial pericardial effusion not hemodynamically significant ASSESSMENT/PLAN: 63 yo F PMH of HIV (per PCP, viral load 34 and CD4 count 926 on 08/27/18), HTN, HLD, afib s/p ablation, TIA?, and hypertrophic cardiomyopathy p/w acute onset confusion and short term amnesia. Acute Encephalopathy (metabolic vs infx) vs stroke vs seizure - pt w/ short term amnesia, AOX3, neuro exam nl, jail memory appears to be intact, NIHSS 0, MMSE 26 (pt could not recall 3 items, and date), VSS, afebrile no leukocytosis or other signs of infx, CXR no acute pathology, Head CT negative. labs grossly unremarkable, ammonia nl, UA neg. will require more lab and imaging for complete w/u to r/o metabolic vs infectious causes. -s/p ASA 325, 1L NS in ED -Neuro consult: Belén -Cardio consult: Rito -ID consult: Matthias -MRI/MRA w/o con -ECHO noted above -carotid u/s - w/o hemodynamically significant stenosis -f/u HSV, Lyme, CD4, HIV viral load, U-tox -Lipid panel, B12, Folate, TSH, RPR nl -A1c 5.6 -consider LP if labs and MRI are non diagnostic -aspiration/seizure precautions -Neuro checks -PT HIV - appears stable (per PCP, viral load 34 and CD4 count 926 on 08/27/18). Only is aware of her HIV status, daughters not aware CD4, HIV viral load ID consult: Matthias c/w [email or web address] Tropinemia - likely 2/2 demand ischemia but should r/o ACS. EKG NSR 60, LVH, TWI I, aVL, V2-V6, no std/troy, QTC 464 msec. Trop 0.50, but no chest pain. coronary calcium score was 27 in Jul 2017 -trop downtrended 0.5...0.49...0.46 -per cardio, trops with borderline elevation and flat trend with nl ck, not c/w acs -s/p ASA 325 -c/w statin/BB nasal congestion and GEORGES - likely sinusitis c/w flonase Tylenol afib s/p ablation - in NSR here -not on ac -outpt f/u, pt's Farm Consultant is dr missael pedro HTN c/w home metoprolol 100 HLD c/w home statin mild chronic constipation bowel regimen - Colace/senna/miralax FEN po hydration replete prn sodium/cholesterol diet ppx SCD, hold off on AC for now in case of late or slow bleed causing sxs Dispo tele Visit type - Emergency Visit Emergency Visit: Yes ED Registration Date: 11/14/18 Care time: The patient presented to the Emergency Department on the above date and was hospitalized for further evaluation of their emergent condition. - New Patient This patient is new to me today: Yes Date on this admission: 11/15/18 - Critical Care Critical Care patient: No
--- NOTE | 2018-11-15 09:07 | CON.NEURO ---
Consult - History of Present Illness History of Present Illness: 63 yo F PMH of HIV (per PCP, viral load 34 and CD4 count 926 on Aug 27 2018), HTN, HLD, TIA?, and hypertrophic cardiomyopathy p/w acute onset confusion and short term amnesia. The daughters who are at bedside state that patient was completely normal yesterday when she went to sleep. They were speaking with her all day and she was her normal self. Today, when the patient woke up she was fine, spoke w/ daughter at 9am and was fine. At 915am pt called her daughter back and was crying hysterically because the patient said she could not remember what was going on and she is confused. The patient endorses mild lightheadedness but feels steady on her feet. She also endorses mild chronic constipation. GEORGES x 3 weeks, no HX of migraines, MRI IMPRESSION: Mild volume loss and minimal periventricular chronic microvascular ischemic disease changes. Likely tiny acute/subacute lacunar infarct in the right frontal lobe, along anterior margin of the right sylvian fissure. Otherwise, no acute intracranial pathology or abnormal enhancement is identified. MRA of the brain. A noncontrast MRA of the brain was performed utilizing 3-D [id number] technique. Source and MIP images were reviewed. In the anterior circulation, no gross focal stenosis, aneurysm or major artery cutoff is seen. In the posterior circulation, the vertebrobasilar junction, basilar artery and tip appear unremarkable. Both posterior cerebral and superior cerebellar arteries appear unremarkable. - Past Medical History ...: No - Alcohol/Substance Use Hx Alcohol Use: No - Smoking History Smoking history: Never smoked Home Medications - Allergies Allergies/Adverse Reactions: Allergies Allergy/AdvReac Type Severity Reaction Status Date / Time No Known Allergies Allergy Verified 11/14/18 11:40 - Home Medications Home Medications: Ambulatory Orders Bictegrav/Emtricit/Tenofov Ala [Biktarvy 50-200-25 mg Tablet] 1 tab PO DAILY Fluticasone Prop 0.05% Nasal [Flonase -] 1 spray PRN 11/14/18 Metoprolol Succinate [Toprol XL -] 100 mg PO DAILY 11/14/18 Pravastatin Sodium 20 mg PO DAILY 11/14/18 Physical Exam-Neuro Vital Signs: Vital Signs Temperature 98.2 F 11/15/18 05:00 Pulse Rate 56 L 11/15/18 05:00 Respiratory Rate 18 11/15/18 05:00 Blood Pressure 140/72 11/15/18 05:00 O2 Sat by Pulse Oximetry (%) 96 11/14/18 21:00 Constitutional: Yes: Well Nourished Labs: CBC, BMP 11/15/18 05:30 11/15/18 05:30 INR, PTT INR 0.98 (0.83-1.09) 11/14/18 13:09 - Neuro Exam Level Of Consciousness: Yes: Alert, Oriented to Person (awake, alert, decraesed ST memory for yesterday events, LT memory intact, no focal weakness, no nuchal rigidity, relfexes NL ) Problem List - Problems (1) Transient global amnesia Code(s): G45.4 - TRANSIENT GLOBAL AMNESIA (2) Headache Code(s): R51 - HEADACHE (3) Change in mental status Code(s): R41.82 - ALTERED MENTAL STATUS, UNSPECIFIED Assessment/Plan 63 yo F PMH of HIV (per PCP, viral load 34 and CD4 count 926 on Aug 27 2018), HTN, HLD, TIA?, and hypertrophic cardiomyopathy p/w acute onset confusion and short term amnesia. The daughters who are at bedside state that patient was completely normal yesterday when she went to sleep. They were speaking with her all day and she was her normal self. Today, when the patient woke up she was fine, spoke w/ daughter at 9am and was fine. At 915am pt called her daughter back and was crying hysterically because the patient said she could not remember what was going on and she is confused. The patient endorses mild lightheadedness but feels steady on her feet. She also endorses mild chronic constipation. GEORGES x 3 weeks, no HX of migraines, MRI IMPRESSION: Mild volume loss and minimal periventricular chronic microvascular ischemic disease changes. Likely tiny acute/subacute lacunar infarct in the right frontal lobe, along anterior margin of the right sylvian fissure. Otherwise, no acute intracranial pathology or abnormal enhancement is identified. MRA of the brain. A noncontrast MRA of the brain was performed utilizing 3-D [id number] technique. Source and MIP images were reviewed. In the anterior circulation, no gross focal stenosis, aneurysm or major artery cutoff is seen. In the posterior circulation, the vertebrobasilar junction, basilar artery and tip appear unremarkable. Both posterior cerebral and superior cerebellar arteries appear unremarkable. AP : HX of HIV , with new onset confusional episode yesterday, suspicious for episode of transient global amnesia less likely TIA , though does not full explain her new onset GEORGES MRI (-) , no evidence of a stroke, mass etc can check DOPPLER outpt EEG check ESR /.CRP , r/o temporal arteritis DR. WOLFF
[2018-11-15] MEDS: POLYETHYLENE GLYCOL 3350 119 GM BTL PO SCH (09:08)
[2018-11-15] MEDS ORDERED: PATIENT'S OWN MEDICATION (NON-FORMULARY) (Bictegrav/Emtricit/Tenofov Ala 1 TAB) PO SCH (10:00)
[2018-11-15] MEDS ORDERED: FLUTICASONE PROP 0.05% 16 GM NASAL SPRAY NS SCH (10:00)
--- NOTE | 2018-11-15 10:37 | EKG ---
Test Reason : Blood Pressure : / mmHG Vent. Rate : 060 BPM Atrial Rate : 060 BPM P-R Int : 126 ms QRS Dur : 090 ms QT Int : 464 ms P-R-T Axes : -08 015 157 degrees QTc Int : 464 ms NORMAL SINUS RHYTHM LEFT VENTRICULAR HYPERTROPHY WITH REPOLARIZATION ABNORMALITY ABNORMAL ECG NO PREVIOUS ECGS AVAILABLE POOR DATA QUALITY, INTERPRETATION MAY BE ADVERSELY AFFECTED Confirmed by JOSE VALLE MD ([id number]) on 11/15/2018 10:36:33 AM Referred By: Confirmed By:JOSE VALLE MD
--- NOTE | 2018-11-15 11:35 | CON.CARD ---
Cardiology Consult (text) - Consultation Consultation Note: cc: ams hpi: 63 f hx hiv, htn, hld, HCM, afib s/p ablation, here with ams. Pt had acute episode of forgetfulness yesterday. No cp sob palps dizzy loc pnd orthopnea le edema. Reports recent sinus congestion, possible fever at home. [employer] Installer is dr missael pedro. pmh: per hpi psh: ablation, hysterectomy social: no tob fam: mom and brother with HCM, no premature cad ros: per hpi; no nvd. +headaches. no gib dysuria. all others normal. meds: Home Medications Medication Instructions Recorded Bictegrav/Emtricit/Tenofov Ala 1 tab PO DAILY 11/14/18 [Biktarvy 50-200-25 mg Tablet] Fluticasone Prop 0.05% Nasal 1 spray PRN 11/14/18 [Flonase -] Metoprolol Succinate [Toprol XL -] 100 mg PO DAILY 11/14/18 Pravastatin Sodium 20 mg PO DAILY 11/14/18 pe: Vital Signs Period Temp Pulse Resp BP Sys/Bahena Pulse Ox Last 24 Hr 98.0 F-98.4 F 55-67 16-18 120-170/67-90 94-100 nad no jvd rrr s1s2 no mrg cta bl nl eff aaox3 abd nt nd pos bs no le e/c/c no jaundice diaphoresis pos dp pt no carotid bruits Laboratory Last Values WBC 5.1 K/mm3 (4.0-10.0) 11/15/18 05:30 RBC 4.06 M/mm3 (3.60-5.2) 11/15/18 05:30 Hgb 12.9 GM/dL (10.7-15.3) 11/15/18 05:30 Hct 38.3 % (32.4-45.2) 11/15/18 05:30 MCV 94.2 fl (80-96) 11/15/18 05:30 MCH 31.7 pg (25.7-33.7) 11/15/18 05:30 MCHC 33.6 g/dl (32.0-36.0) 11/15/18 05:30 RDW 13.4 % (11.6-15.6) 11/15/18 05:30 Plt Count 181 K/MM3 (134-434) 11/15/18 05:30 MPV 9.1 fl (7.5-11.1) 11/15/18 05:30 Absolute Neuts (auto) 2.4 K/mm3 (1.5-8.0) 11/15/18 05:30 Neutrophils % 46.6 % (42.8-82.8) D 11/15/18 05:30 Lymphocytes % 42.3 % (8-40) H D 11/15/18 05:30 Monocytes % 8.6 % (3.8-10.2) D 11/15/18 05:30 Eosinophils % 2.1 % (0-4.5) D 11/15/18 05:30 Basophils % 0.4 % (0-2.0) 11/15/18 05:30 Nucleated RBC % 0 % (0-0) 11/15/18 05:30 PT with INR 11.60 SEC (9.7-13.0) 11/14/18 13:09 INR 0.98 (0.83-1.09) 11/14/18 13:09 Sodium 141 mmol/L (136-145) 11/15/18 05:30 Potassium 4.0 mmol/L (3.5-5.1) 11/15/18 05:30 Chloride 109 mmol/L (98-107) H 11/15/18 05:30 Carbon Dioxide 28 mmol/L (21-32) 11/15/18 05:30 Anion Gap 4 MMOL/L (8-16) L 11/15/18 05:30 BUN 12 mg/dL (7-18) 11/15/18 05:30 Creatinine 0.9 mg/dL (0.55-1.3) 11/15/18 05:30 Creat Clearance w eGFR 63.44 (>60) 11/15/18 05:30 Random Glucose 95 mg/dL (74-106) 11/15/18 05:30 Hemoglobin A1c % 5.6 % (4.2-6.3) 11/15/18 05:30 Calcium 8.6 mg/dL (8.5-10.1) 11/15/18 05:30 Phosphorus 3.5 mg/dL (2.5-4.9) 11/15/18 05:30 Magnesium 2.4 mg/dL (1.8-2.4) 11/15/18 05:30 Total Bilirubin 0.4 mg/dL (0.2-1) 11/15/18 05:30 AST 15 U/L (15-37) 11/15/18 05:30 ALT 24 U/L (13-61) 11/15/18 05:30 Alkaline Phosphatase 43 U/L (45-117) L 11/15/18 05:30 Ammonia 10.20 umol/L (11-32) L 11/14/18 13:09 Creatine Kinase 174 U/L (26-192) 11/14/18 13:09 Creatine Kinase Index 1.6 % (0.0-5.0) 11/14/18 13:09 CK-MB (CK-2) 2.8 ng/mL (0.5-3.6) 11/14/18 13:09 Troponin I 0.46 ng/ml (0.00-0.05) H 11/15/18 00:05 Total Protein 6.7 g/dl (6.4-8.2) 11/15/18 05:30 Albumin 3.6 g/dl (3.4-5.0) 11/15/18 05:30 Triglycerides 79 mg/dL (0-150) 11/15/18 05:30 Cholesterol 159 mg/dL (50-200) 11/15/18 05:30 Total LDL Cholesterol 91 mg/dL (5-100) 11/15/18 05:30 HDL Cholesterol 55 mg/dL (40-60) 11/15/18 05:30 Vitamin B12 500 pg/ml (193-986) 11/14/18 18:30 Serum Folate 17 ng/mL (3.1-17.5) 11/14/18 18:30 TSH 2.47 uIU/ml (0.358-3.74) 11/14/18 18:30 Urine Color Yellow 11/14/18 15:05 Urine Appearance Clear 11/14/18 15:05 Urine pH 8.0 (5.0-8.0) 11/14/18 15:05 Ur Specific [place] 1.004 (1.010-1.035) L 11/14/18 15:05 Urine Protein Negative (NEGATIVE) 11/14/18 15:05 Urine Glucose (UA) Negative (NEGATIVE) 11/14/18 15:05 Urine Ketones Negative (NEGATIVE) 11/14/18 15:05 Urine Blood Negative (NEGATIVE) 11/14/18 15:05 Urine Nitrite Negative (NEGATIVE) 11/14/18 15:05 Urine Bilirubin Negative (NEGATIVE) 11/14/18 15:05 Urine Urobilinogen 0.2 mg/dL (0.2-1.0) 11/14/18 15:05 Ur Leukocyte Esterase Negative (NEGATIVE) 11/14/18 15:05 RPR Titer Nonreactive (NONREACTIVE) 11/14/18 18:30 Blood Type O POSITIVE 11/14/18 18:30 Antibody Screen Negative 11/14/18 13:09 cxr: no chf ecg: sr, lvh with repol changes tele: sr a/p: 63 f hx hiv, htn, hld, HCM, afib s/p ablation, here with ams. 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
[2018-11-15] MEDS ORDERED: ONDANSETRON 4 MG/2 ML VIAL IVPUSH ONE (11:45)
--- NOTE | 2018-11-15 11:49 | ECHO ---
Name: WOODS, GEORGES Exam:Adult Echocardiogram Study Date: 11/15/2018 10:07 AM Age: 63 yrs Reason For Study: hypertrophic cardiomyopathy Height: 62 in Weight: 140 lb BSA: 1.6 m2 MMode/2D Measurements & Calculations IVSd: 0.87 cm Ao root diam: 2.8 cm LVIDd: 5.0 cm LA dimension: 3.6 cm LVIDs: 3.3 cm LVPWd: 1.0 cm LVPWs: 1.6 cm EDV(Teich): 120.4 ml ESV(Teich): 44.0 ml LVOT diam: 2.3 cm RV S Elliott: 11.0 cm/sec Doppler Measurements & Calculations MV E max elliott: 81.4 cm/sec Ao V2 max: 153.2 cm/sec MV A max elliott: 38.0 cm/sec Ao max P.4 mmHg MV E/A: 2.1 Ao V2 mean: 98.1 cm/sec MV dec time: 0.20 sec Ao mean P.9 mmHg Ao V2 VTI: 31.4 cm ADAMA(I,D): 2.4 cm2 ADAMA(V,D): 2.7 cm2 LV V1 max P.1 mmHg MR max elliott: 275.2 cm/sec LV V1 mean P.8 mmHg MR max P.3 mmHg LV V1 max: 101.2 cm/sec LV V1 mean: 58.7 cm/sec LV V1 VTI: 18.6 cm SV(LVOT): 76.4 ml PA V2 max: 70.6 cm/sec PA max P.0 mmHg Med Peak E' Elliott: 4.7 cm/sec Med E/e': 17.3 Lat Peak E' Elliott: 7.4 cm/sec Lat E/e': 11.0 Left Ventricle Apical hypertrophy is present. Left ventricular systolic function is normal. Ejection Fraction = 60-6 5%. Right Ventricle The right ventricle is normal in size and function. Atria The left atrium is borderline dilated. Right atrial size is normal. Mitral Valve The mitral valve is normal in structure and function. There is no mitral valve stenosis. There is tra ce mitral regurgitation. Tricuspid Valve The tricuspid valve is normal in structure and function. There is mild tricuspid regurgitation. Right ventricular systolic pressure is normal. Aortic Valve The aortic valve opens well. No hemodynamically significant valvular aortic stenosis. No aortic regur gitation is present. Pulmonic Valve The pulmonic valve is not well seen, but is grossly normal. There is no pulmonic valvular stenosis. T here is no pulmonic valvular regurgitation. Great Vessels The aortic root is normal size. Pericardium/Pleura Trivial pericardial effusion not hemodynamically significant. Interpretation Summary Left ventricular systolic function is normal. Ejection Fraction = 60-65%. Apical hypertrophy is present. The right ventricle is normal in size and function. There is mild tricuspid regurgitation. Right ventricular systolic pressure is normal. Trivial pericardial effusion not hemodynamically significant MD Brown *Di 11/15/2018 11:49 AM
[2018-11-15] MEDS: ACETAMINOPHEN 500 MG TABLET (FP) PO PRN (16:14)
[2018-11-15] MEDS ORDERED: ASPIRIN 81 MG CHEWABLE TABLETS PO ONE (16:21)
--- NOTE | 2018-11-15 17:36 | PN ---
Progress Note (short form) - Note Progress Note: ID consult dictated imp/reccd 63 yo female with well controlled HIV with 3 weeks of headache developed transient change in MS yesterday that resolved later the same day no fever MRI reviewed with radiologist - no signs of sinusitis clinicallly no signs of meningitis headaches- persist despite resolution of mental status changes would defer to neurology for further workup given her robust cd4 count and viral suppression she is unlikely to have an OI would continue her biktarvy Problem List - Problems (1) Change in mental status Code(s): R41.82 - ALTERED MENTAL STATUS, UNSPECIFIED (2) Headache Code(s): R51 - HEADACHE (3) HIV (human immunodeficiency virus infection) Code(s): B20 - HUMAN IMMUNODEFICIENCY VIRUS [HIV] DISEASE
[2018-11-15] MEDS: PATIENT'S OWN MEDICATION (NON-FORMULARY) (Bictegrav/Emtricit/Tenofov Ala 1 TAB) PO SCH (17:37)
[2018-11-15] MEDS: ENOXAPARIN NA (PORCINE) 40 MG/0.4 ML DISP.SYRIN SQ SCH (17:39)
--- NOTE | 2018-11-15 19:03 | CONS ---
DATE OF CONSULTATION: DATE OF DICTATION: 11/15/2018 INFECTIOUS DISEASE CONSULTATION REQUESTING PHYSICIAN: Hospitalist Service CONSULTING PHYSICIAN: Adriel Almanza M.D. HISTORY OF PRESENT ILLNESS: A 63-year-old woman who lives in the community. She gives a history of 3 weeks of these frontal headaches that have been nagging. She saw her doctor and thought she had some sinus congestion but was told to just take [id number] medicine. She apparently was fine yesterday morning and then the next day when she woke up she spoke with her daughter at 9 and was fine. At 9:15 she called her daughter back and she said she could not remember what was going on and was confused. In the ER, she apparently did not know how old she was, what year it was, or what month it was. By the time she was evaluated by the admitting service, she was completely oriented. She has had no fevers at all. She has had this chronic headache that is unchanged. PAST MEDICAL HISTORY: Notable for a history of HIV that is very well controlled. She has a viral load of 34 and a CD4 count of 926. She was diagnosed 5 years ago. Her past medical history is notable for hypertension, hyperlipidemia, hypertrophic cardiomyopathy, history of TIA and HIV. She has had a cardiac ablation and hysterectomy in the past. FAMILY HISTORY: She has a family history of hypertrophic cardiomyopathy. ALLERGIES: No known drug allergies. MEDICATION: Include pravastatin, metoprolol. She was not using the flonase nasal spray and Biktarvy. She is not taking any antibiotics. SOCIAL HISTORY: She is not working. 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 She has 3 adult children and several grandchildren. Her last travel was to [place] and [place] several months ago with her granddaughters. REVIEW OF SYSTEMS: Notable for sinus congestion and a stuffy nose. PHYSICAL EXAMINATION: GENERAL: She is a pleasant woman in no acute distress. VITAL SIGNS: Temperature is 98.8, pulse 59, blood pressure 121/65, respiratory rate 20, she is saturating 96% on 2 L. During the entire conversation she is very comfortable, nodding her head, shaking her head, and in general looking around the wound. HEENT: Normocephalic. Eyes are anicteric. She has no conjunctivitis and conjunctival hemorrhages. She has no thrush. NECK: Supple. She has no meningeal signs. She has no adenopathy on exam. LUNGS: Clear to auscultation. HEART: Regular rate and rhythm. ABDOMEN: Soft, nontender. EXTREMITIES: Without edema. She has no sinus tenderness on exam . LABORATORY: Notable for a white count of 5.1, hemoglobin 12.9, platelets of 181. BUN and creatinine are 12 and 0.9. Troponin is 0.46. Urinalysis is negative. T-cells are pending. RPR is negative. Blood cultures were not sent, as she has had no fever. She has had multiple imaging studies including a head CT and brain MRI and MRA. We reviewed the brain MRI with radiology. There is no evidence of any sinus disease to explain her headaches. IMPRESSION: In summary, this is a 63-year-old woman with very well controlled HIV disease, T-cells at over 900 and with a suppressed viral load of 34 with 3 weeks of headache, transient change in mental status yesterday that has completely resolved. I would defer further workup to neurology at this time . She has no fevers to suggest infectious process. There is no sign of sinusitis on any of the imaging studies given her robust CD4 count and viral suppression, she is unlikely to have an opportunistic infection. Would continue her Biktarvy as planned. Further management per neurology. ADRIEL ALMANZA M.D. [id number]
--- NOTE | 2018-11-15 20:49 | PN ---
Teaching Attending Note Name of Resident: Jose Alejandro Sarmiento ATTENDING PHYSICIAN STATEMENT I saw and evaluated the patient. I reviewed the resident's note and discussed the case with the resident. I agree with the resident's findings and plan as documented. SUBJECTIVE: Still has memory loss of events 24 hours prior to admission but long -term memory intact. No fever/chills. Headache, no visual disturbance. OBJECTIVE: Afebrile, Hemodynamically Stable. AAO x 3. Last Vital Signs Temp Pulse Resp BP Pulse Ox 98.2 F 52 L 20 109/67 95 11/16/18 06:00 11/16/18 06:00 11/16/18 06:00 11/16/18 06:00 11/15/18 21:00 HEENT - Atraumatic, Normocephalic. Neuro - AAO x 3 SOFIE. Tone/Power normal all 4 extremities Heart - S1, S2, RRR Lungs - clear to auscultation, no crackles/wheeze. Abdomen - Soft, non-tender. Bowel Sounds normal Extremities - no edema. No calf tenderness Laboratory Results - last 24 hr 11/14/18 11/14/18 11/14/18 18:30 18:30 18:30 WBC RBC Hgb Hct MCV MCH MCHC RDW Plt Count MPV Absolute Neuts (auto) Neutrophils % Lymphocytes % Monocytes % Eosinophils % Basophils % Nucleated RBC % Sodium Potassium Chloride Carbon Dioxide Anion Gap BUN Creatinine Creat Clearance w eGFR Random Glucose Hemoglobin A1c % Calcium Phosphorus Magnesium Total Bilirubin AST ALT Alkaline Phosphatase Troponin I 0.49 H Total Protein Albumin Triglycerides Cholesterol Total LDL Cholesterol HDL Cholesterol Vitamin B12 500 Serum Folate 17 TSH 2.47 RPR Titer Nonreactive 11/14/18 11/15/18 11/15/18 18:30 00:05 05:30 WBC 5.1 RBC 4.06 Hgb 12.9 Hct 38.3 MCV 94.2 MCH 31.7 MCHC 33.6 RDW 13.4 Plt Count 181 MPV 9.1 Absolute Neuts (auto) 2.4 Neutrophils % 46.6 D Lymphocytes % 42.3 H D Monocytes % 8.6 D Eosinophils % 2.1 D Basophils % 0.4 Nucleated RBC % 0 Sodium Potassium Chloride Carbon Dioxide Anion Gap BUN Creatinine Creat Clearance w eGFR Random Glucose Hemoglobin A1c % Calcium Phosphorus Magnesium Total Bilirubin AST ALT Alkaline Phosphatase Troponin I Cancelled 0.46 H Total Protein Albumin Triglycerides Cholesterol Total LDL Cholesterol HDL Cholesterol Vitamin B12 Serum Folate TSH RPR Titer 11/15/18 11/15/18 05:30 05:30 WBC RBC Hgb Hct MCV MCH MCHC RDW Plt Count MPV Absolute Neuts (auto) Neutrophils % Lymphocytes % Monocytes % Eosinophils % Basophils % Nucleated RBC % Sodium 141 Potassium 4.0 Chloride 109 H Carbon Dioxide 28 Anion Gap 4 L BUN 12 Creatinine 0.9 Creat Clearance w eGFR 63.44 Random Glucose 95 Hemoglobin A1c % 5.6 Calcium 8.6 Phosphorus 3.5 Magnesium 2.4 Total Bilirubin 0.4 AST 15 ALT 24 Alkaline Phosphatase 43 L Troponin I Total Protein 6.7 Albumin 3.6 Triglycerides 79 Cholesterol 159 Total LDL Cholesterol 91 HDL Cholesterol 55 Vitamin B12 Serum Folate TSH RPR Titer Current Medications Generic Name Dose Route Start Last Admin Trade Name Freq PRN Reason Stop Dose Admin Acetaminophen 1,000 mg 11/15/18 11:48 11/15/18 16:14 Tylenol - PO 1,000 mg Q6H PRN Administration HEADACHE Aspirin 81 mg 11/16/18 10:00 Asa - PO DAILY FRANCO Atorvastatin Calcium 10 mg 11/15/18 22:00 Lipitor - PO HS FRANCO Docusate Sodium 100 mg 11/14/18 22:00 11/15/18 15:27 Colace - PO 100 mg TID FRANCO Administration Enoxaparin Sodium 40 mg 11/15/18 16:30 11/15/18 17:39 Lovenox - SQ 40 mg DAILY FRANCO Administration Metoprolol Succinate 100 mg 11/15/18 10:00 11/15/18 09:10 Toprol Xl - PO 100 mg DAILY FRANCO Administration Non-Formulary Medication 1 tab 11/15/18 18:00 11/15/18 17:37 Bictegrav/Emtricit/Tenofov Ala PO 1 tab DAILY@1800 FRANCO Administration Polyethylene Glycol 17 gm 11/14/18 16:45 11/15/18 09:08 Miralax (For Daily Use) - PO 17 grams DAILY FRANCO Administration Senna 2 tab 11/14/18 22:00 11/14/18 21:47 Senna - PO 2 tab HS FRANCO Administration ASSESSMENT AND PLAN: 63 year old female with HIV on HAART (follows with Dr. Jc), HTN, HLD, Hypertrophic Cardiomyopathy, Arrhythmia s/p septal ablation, presents with acute confusion and short-term amnesia. 1. Acute Encephalopathy - metabolic versus infectious, work up to rule out CVA CT Brain negative Ammonia level normal. MRI/MRA, Carotid Duplex awaited B12 - 500/RPR non-reactive/TSH level 2.47 UA neg/Utox neg Neurology consulted - recommend out-patient EEG, ESR/CRP for possible temporal arteritis. Lyme serology pending 2. HIV on HAART Prior CD 4 count and viral load 926 and 34 respectively) Repeat counts pending Unlikely infectious etiology as per ID 3. History of Hypertrophic Cardiomyopathy and arrhythmia s/p Ablation ECG - NSR 60, LVH with repolarization abnormalities, T wave inversion TropI 0.5, likely baseline elevation - no chest pain/palpitations Echo - normal EF, Cardiology consulted. Continue Aspirin, BB, Statin 4. HTN - Continue Metoprolol. 5. HLD - Continue Statin DVT Px - Lovenox SQ
[2018-11-15] MEDS: SENNOSIDES 8.6MG TABLET (FP) PO SCH (21:42)
[2018-11-15] MEDS ORDERED: ATORVASTATIN CA 10 MG TABLET (FP) PO SCH (22:00)
[2018-11-15 22:23] LABS: COCAINE, UR NEGATIVE ng/ml (CUTOFF=300); METHADONE, UR NEGATIVE ng/ml (CUTOFF=300); OPIATES, URI NEGATIVE ng/ml (CUTOFF=300); PHENCYCLIDINE,URINE NEGATIVE ng/ml (CUTOFF=25); URINE AMPHETAMINES NEGATIVE ng/ml (CUTOFF=500); URINE BARBITURATES NEGATIVE ng/ml (CUTOFF=200); URINE BENZODIAZEPINES NEGATIVE ng/ml (CUTOFF=200)
[2018-11-16] MEDS: DOCUSATE SODIUM 100 MG CAPSULE (FP) PO SCH ×3 (06:28→21:12)
[2018-11-16] MEDS: ACETAMINOPHEN 500 MG TABLET (FP) PO PRN ×2 (06:50→21:12)
[2018-11-16] MEDS ORDERED: ONDANSETRON 4 MG/2 ML VIAL IVPUSH ONE (10:19)
[2018-11-16] MEDS: POLYETHYLENE GLYCOL 3350 119 GM BTL PO SCH (10:33)
[2018-11-16] MEDS: ASPIRIN 81 MG CHEWABLE TABLETS PO SCH (10:33)
[2018-11-16] MEDS: ENOXAPARIN NA (PORCINE) 40 MG/0.4 ML DISP.SYRIN SQ SCH (10:33)
--- NOTE | 2018-11-16 13:02 | PN ---
Progress Note (short form) - Note Progress Note: s: no cp sob palps dizzy o: Vital Signs Period Temp Pulse Resp BP Sys/Bahena Pulse Ox Last 24 Hr 97.8 F-98.8 F 52-59 18-20 97-137/56-84 95-98 nad no jvd rrr s1s2 no mrg cta bl nl eff aaox3 abd nt nd pos bs no le e/c/c no jaundice diaphoresis Current Medications Generic Name Dose Route Start Last Admin Trade Name Freq PRN Reason Stop Dose Admin Acetaminophen 1,000 mg 11/15/18 11:48 11/16/18 06:50 Tylenol - PO 1,000 mg Q6H PRN Administration HEADACHE Aspirin 81 mg 11/16/18 10:00 11/16/18 10:33 Asa - PO 81 mg DAILY FRANCO Administration Atorvastatin Calcium 10 mg 11/15/18 22:00 11/15/18 21:43 Lipitor - PO 10 mg HS FRANCO Administration Docusate Sodium 100 mg 11/14/18 22:00 11/16/18 06:28 Colace - PO 100 mg TID FRANCO Administration Enoxaparin Sodium 40 mg 11/15/18 16:30 11/16/18 10:33 Lovenox - SQ 40 mg DAILY FRANCO Administration Metoprolol Succinate 100 mg 11/15/18 10:00 11/16/18 10:33 Toprol Xl - PO 100 mg DAILY FRANCO Administration Non-Formulary Medication 1 tab 11/15/18 18:00 11/15/18 17:37 Bictegrav/Emtricit/Tenofov Ala PO 1 tab DAILY@1800 FRANCO Administration Polyethylene Glycol 17 gm 11/14/18 16:45 11/16/18 10:33 Miralax (For Daily Use) - PO 17 grams DAILY FRANCO Administration Senna 2 tab 11/14/18 22:00 11/15/18 21:42 Senna - PO 2 tab HS FRANCO Administration Laboratory Last Values WBC 5.1 K/mm3 (4.0-10.0) 11/15/18 05:30 RBC 4.06 M/mm3 (3.60-5.2) 11/15/18 05:30 Hgb 12.9 GM/dL (10.7-15.3) 11/15/18 05:30 Hct 38.3 % (32.4-45.2) 11/15/18 05:30 MCV 94.2 fl (80-96) 11/15/18 05:30 MCH 31.7 pg (25.7-33.7) 11/15/18 05:30 MCHC 33.6 g/dl (32.0-36.0) 11/15/18 05:30 RDW 13.4 % (11.6-15.6) 11/15/18 05:30 Plt Count 181 K/MM3 (134-434) 11/15/18 05:30 MPV 9.1 fl (7.5-11.1) 11/15/18 05:30 Absolute Neuts (auto) 2.4 K/mm3 (1.5-8.0) 11/15/18 05:30 Absolute Lymphs (auto) 1.9 x10E3/uL (0.7-3.1) 11/14/18 18:30 Neutrophils % 46.6 % (42.8-82.8) D 11/15/18 05:30 Lymphocytes % 42.3 % (8-40) H D 11/15/18 05:30 Monocytes % 8.6 % (3.8-10.2) D 11/15/18 05:30 Eosinophils % 2.1 % (0-4.5) D 11/15/18 05:30 Basophils % 0.4 % (0-2.0) 11/15/18 05:30 Nucleated RBC % 0 % (0-0) 11/15/18 05:30 Lymphocytes 26 % (Not Estab.) 11/14/18 18:30 Nucleated RBCs TNP 11/14/18 18:30 ESR 8 mm/hr (0-30) 11/16/18 06:15 PT with INR 11.60 SEC (9.7-13.0) 11/14/18 13:09 INR 0.98 (0.83-1.09) 11/14/18 13:09 Sodium 141 mmol/L (136-145) 11/15/18 05:30 Potassium 4.0 mmol/L (3.5-5.1) 11/15/18 05:30 Chloride 109 mmol/L (98-107) H 11/15/18 05:30 Carbon Dioxide 28 mmol/L (21-32) 11/15/18 05:30 Anion Gap 4 MMOL/L (8-16) L 11/15/18 05:30 BUN 12 mg/dL (7-18) 11/15/18 05:30 Creatinine 0.9 mg/dL (0.55-1.3) 11/15/18 05:30 Creat Clearance w eGFR 63.44 (>60) 11/15/18 05:30 Random Glucose 95 mg/dL (74-106) 11/15/18 05:30 Hemoglobin A1c % 5.6 % (4.2-6.3) 11/15/18 05:30 Calcium 8.6 mg/dL (8.5-10.1) 11/15/18 05:30 Phosphorus 3.5 mg/dL (2.5-4.9) 11/15/18 05:30 Magnesium 2.4 mg/dL (1.8-2.4) 11/15/18 05:30 Total Bilirubin 0.4 mg/dL (0.2-1) 11/15/18 05:30 AST 15 U/L (15-37) 11/15/18 05:30 ALT 24 U/L (13-61) 11/15/18 05:30 Alkaline Phosphatase 43 U/L (45-117) L 11/15/18 05:30 Ammonia 10.20 umol/L (11-32) L 11/14/18 13:09 Creatine Kinase 174 U/L (26-192) 11/14/18 13:09 Creatine Kinase Index 1.6 % (0.0-5.0) 11/14/18 13:09 CK-MB (CK-2) 2.8 ng/mL (0.5-3.6) 11/14/18 13:09 Troponin I 0.45 ng/ml (0.00-0.05) H 11/15/18 19:50 C-Reactive Protein < 0.3 MG/DL (0.00-0.3) 11/15/18 19:50 Total Protein 6.7 g/dl (6.4-8.2) 11/15/18 05:30 Albumin 3.6 g/dl (3.4-5.0) 11/15/18 05:30 Triglycerides 79 mg/dL (0-150) 11/15/18 05:30 Cholesterol 159 mg/dL (50-200) 11/15/18 05:30 Total LDL Cholesterol 91 mg/dL (5-100) 11/15/18 05:30 HDL Cholesterol 55 mg/dL (40-60) 11/15/18 05:30 Vitamin B12 500 pg/ml (193-986) 11/14/18 18:30 Serum Folate 17 ng/mL (3.1-17.5) 11/14/18 18:30 TSH 2.47 uIU/ml (0.358-3.74) 11/14/18 18:30 Urine Color Yellow 11/14/18 15:05 Urine Appearance Clear 11/14/18 15:05 Urine pH 8.0 (5.0-8.0) 11/14/18 15:05 Ur Specific [place] 1.004 (1.010-1.035) L 11/14/18 15:05 Urine Protein Negative (NEGATIVE) 11/14/18 15:05 Urine Glucose (UA) Negative (NEGATIVE) 11/14/18 15:05 Urine Ketones Negative (NEGATIVE) 11/14/18 15:05 Urine Blood Negative (NEGATIVE) 11/14/18 15:05 Urine Nitrite Negative (NEGATIVE) 11/14/18 15:05 Urine Bilirubin Negative (NEGATIVE) 11/14/18 15:05 Urine Urobilinogen 0.2 mg/dL (0.2-1.0) 11/14/18 15:05 Ur Leukocyte Esterase Negative (NEGATIVE) 11/14/18 15:05 Opiates Screen Negative ng/ml (EDZDJD=169) 11/15/18 21:30 Methadone Screen Negative ng/ml (CDGJAL=410) 11/15/18 21:30 Barbiturate Screen Negative ng/ml (UBRIFH=399) 11/15/18 21:30 Phencyclidine Screen Negative ng/ml (CUTOFF=25) 11/15/18 21:30 Ur Amphetamines Screen Negative ng/ml (BNRBVS=362) 11/15/18 21:30 MDMA (Ecstasy) Screen Negative ng/ml (PVWCTT=876) 11/15/18 21:30 Benzodiazepines Screen Negative ng/ml (TRNMZB=388) 11/15/18 21:30 Cocaine Screen Negative ng/ml (NPHLXC=039) 11/15/18 21:30 U Marijuana (THC) Screen Negative ng/ml (CUTOFF=50) 11/15/18 21:30 Absolute CD3 Count 1370 /uL (622-2402) 11/14/18 18:30 % CD3+ Lymphocytes 72.1 % (57.5-86.2) 11/14/18 18:30 Absolute CD4 [place] 910 /uL (359-1519) 11/14/18 18:30 % CD4+ Lymphocyte 47.9 % (30.8-58.5) 11/14/18 18:30 CD4/CD8 Ratio 2.06 (0.92-3.72) 11/14/18 18:30 % CD8+ Lymphocyte 23.2 % (12.0-35.5) 11/14/18 18:30 Absolute CD8 Count 441 /uL (109-897) 11/14/18 18:30 RPR Titer Nonreactive (NONREACTIVE) 11/14/18 18:30 HSV I IgG Ab 22.50 index (0.00-0.90) H 11/14/18 18:30 HSV II Inhibition IgG 4.92 index (0.00-0.90) H 11/14/18 18:30 Blood Type O POSITIVE 11/14/18 18:30 Antibody Screen Negative 11/14/18 13:09 cxr: no chf ecg: sr, lvh with repol changes tele: sr echo 10/2018: nl lvef, apical hypertrophy, nl rv, mild tr, nl rvsp a/p: 63 f hx hiv, htn, hld, HCM, afib s/p ablation, here with ams. memory loss, ams: -plans per neuro htn: -cont bb hld: -cont statin hcm: -echo stable here -cont bb, outpt f/u with her contact center rep afib: -s/p ablation, in sr here -not on ac -outpt f/u elevated trops: -trops with borderline elevation and flat trend with nl ck, not c/w acs -no cp/sob
--- NOTE | 2018-11-16 14:14 | PN ---
Teaching Attending Note Name of Resident: Jose Alejandro Sarmiento ATTENDING PHYSICIAN STATEMENT I saw and evaluated the patient. I reviewed the resident's note and discussed the case with the resident. I agree with the resident's findings and plan as documented. SUBJECTIVE: Still has some short-term memory loss but long-term memory intact. No fever/chills. Headache, no visual disturbance. No limb numbness/weaknes/ tingling OBJECTIVE: Afebrile, Hemodynamically Stable. AAO x 3. Last Vital Signs Temp Pulse Resp BP Pulse Ox 98.0 F 56 L 20 137/84 98 11/16/18 09:58 11/16/18 09:58 11/16/18 09:58 11/16/18 09:58 11/16/18 09:00 HEENT - Atraumatic, Normocephalic. Neuro - AAO x 3 SOFIE. Tone/Power normal all 4 extremities Heart - S1, S2, RRR Lungs - clear to auscultation, no crackles/wheeze. Abdomen - Soft, non-tender. Bowel Sounds normal Extremities - no edema. No calf tenderness Laboratory Results - last 24 hr 11/14/18 11/14/18 11/15/18 18:30 18:30 19:50 WBC 7.1 Absolute Lymphs (auto) 1.9 Lymphocytes 26 Nucleated RBCs TNP ESR Troponin I 0.45 H C-Reactive Protein Opiates Screen Methadone Screen Barbiturate Screen Phencyclidine Screen Ur Amphetamines Screen MDMA (Ecstasy) Screen Benzodiazepines Screen Cocaine Screen U Marijuana (THC) Screen Absolute CD3 Count 1370 % CD3+ Lymphocytes 72.1 Absolute CD4 [place] 910 % CD4+ Lymphocyte 47.9 CD4/CD8 Ratio 2.06 % CD8+ Lymphocyte 23.2 Absolute CD8 Count 441 HSV I IgG Ab 22.50 H HSV II Inhibition IgG 4.92 H 11/15/18 11/15/18 11/16/18 19:50 21:30 06:15 WBC Absolute Lymphs (auto) Lymphocytes Nucleated RBCs ESR 8 Troponin I C-Reactive Protein < 0.3 Opiates Screen Negative Methadone Screen Negative Barbiturate Screen Negative Phencyclidine Screen Negative Ur Amphetamines Screen Negative MDMA (Ecstasy) Screen Negative Benzodiazepines Screen Negative Cocaine Screen Negative U Marijuana (THC) Screen Negative Absolute CD3 Count % CD3+ Lymphocytes Absolute CD4 [place] % CD4+ Lymphocyte CD4/CD8 Ratio % CD8+ Lymphocyte Absolute CD8 Count HSV I IgG Ab HSV II Inhibition IgG Current Medications Generic Name Dose Route Start Last Admin Trade Name Freq PRN Reason Stop Dose Admin Acetaminophen 1,000 mg 11/15/18 11:48 11/16/18 06:50 Tylenol - PO 1,000 mg Q6H PRN Administration HEADACHE Aspirin 81 mg 11/16/18 10:00 11/16/18 10:33 Asa - PO 81 mg DAILY FRANCO Administration Atorvastatin Calcium 10 mg 11/15/18 22:00 11/15/18 21:43 Lipitor - PO 10 mg HS FRANCO Administration Docusate Sodium 100 mg 11/14/18 22:00 11/16/18 14:10 Colace - PO 100 mg TID FRANCO Administration Enoxaparin Sodium 40 mg 11/15/18 16:30 11/16/18 10:33 Lovenox - SQ 40 mg DAILY FRANCO Administration Metoprolol Succinate 100 mg 11/15/18 10:00 11/16/18 10:33 Toprol Xl - PO 100 mg DAILY FRANCO Administration Non-Formulary Medication 1 tab 11/15/18 18:00 11/15/18 17:37 Bictegrav/Emtricit/Tenofov Ala PO 1 tab DAILY@1800 FRANCO Administration Polyethylene Glycol 17 gm 11/14/18 16:45 11/16/18 10:33 Miralax (For Daily Use) - PO 17 grams DAILY FRANCO Administration Senna 2 tab 11/14/18 22:00 11/15/18 21:42 Senna - PO 2 tab HS FRANCO Administration Home Medications Medication Instructions Recorded Bictegrav/Emtricit/Tenofov Ala 1 tab PO DAILY 11/14/18 [Biktarvy 50-200-25 mg Tablet] Fluticasone Prop 0.05% Nasal 1 spray PRN 11/14/18 [Flonase -] Metoprolol Succinate [Toprol XL -] 100 mg PO DAILY 11/14/18 Pravastatin Sodium 20 mg PO DAILY 11/14/18 ASSESSMENT AND PLAN: 63 year old female with HIV on HAART (follows with Dr. Jc), HTN, HLD, Hypertrophic Cardiomyopathy, Arrhythmia s/p septal ablation, presents with acute confusion and short-term amnesia. 1. Transient Amnesia ?related to acute/subacute CVA reported on MRI CT Brain negative Ammonia level normal. MRI/MRA - chronic microvascular disease, tiny acute/subacute infarct R frontal lobe. Carotid Duplex - mucosal plaques, not hemodynamically significant. B12 - 500/RPR non-reactive/TSH level 2.47 UA neg/Utox neg Neurology consulted - recommend out-patient EEG Lyme serology pending Started on Aspirin and continued on Statin. LDL 91. Increase Lipitor to 40mg with repeat LFTs and Lipid panel in 4 weeks 2. HIV on HAART Prior CD 4 count and viral load 926 and 34 respectively Repeat counts pending Unlikely infectious etiology as per ID 3. History of Hypertrophic Cardiomyopathy and arrhythmia s/p Ablation ECG - NSR 60, LVH with repolarization abnormalities, T wave inversion TropI 0.5, likely baseline elevation - no chest pain/palpitations Echo - normal EF, Cardiology consulted. Continue Aspirin, BB, Statin 4. HTN - Continue Metoprolol. 5. HLD - Lipitor dose increased to 40mg DVT Px - Lovenox SQ Medically Stable for discharge with Neuro follow up pending Neuro recommendations
[2018-11-16] MEDS: levETIRAcetam 500 MG TABLET (FP) PO SCH ×2 (14:58→21:12)
--- NOTE | 2018-11-16 17:06 | DS ---
Physical Exam: SUBJECTIVE: Patient seen and examined at bedside. no acute events overnight. still w/ some confusion and short term amnesia but improving, alf memory appears to be intact, pt remembers me from yesterday. denies fever, chills, cp , sob, n/v/d, urinary sxs. At admission: NIHSS 0, MMSE 26 OBJECTIVE: Vital Signs Period Temp Pulse Resp BP Sys/Bahena Pulse Ox Last 24 Hr 97.8 F-98.7 F 52-58 18-20 97-137/56-84 95-98 PHYSICAL EXAM GENERAL: AOX3 NAD, short term amnesia improving, alf memory appears to be intact HEAD: NCAT EYES: PERRLA, EOMI, sclera anicteric, conjunctiva clear. No lid lag. EARS, NOSE, THROAT: nares patent, oropharynx clear without exudates. MMM NECK: Normal range of motion, supple without lymphadenopathy, JVD, or masses. LUNGS: CTAB HEART: RRR, normal S1 and S2 without m/r/g ABDOMEN: Soft, NTND, normoactive bowel sounds, no guarding, no rebound, no masses. No hepatomegaly or splenomegaly. MUSCULOSKELETAL: Normal range of motion at all joints. No bony deformities or tenderness. No CVA tenderness. UPPER EXTREMITIES: 2+ pulses, warm, well-perfused. No cyanosis. No clubbing. No peripheral edema. LOWER EXTREMITIES: 2+ pulses, warm, well-perfused. No calf tenderness. No peripheral edema. NEUROLOGICAL: Cranial nerves II-XII intact. Normal speech. Normal gait. FNT nl , sensation strength reflexes grossly intact PSYCHIATRIC: Cooperative. Good eye contact. Appropriate mood and affect. SKIN: Warm, dry, normal turgor, no rashes or lesions noted, normal capillary refill. LABS Laboratory Results - last 24 hr 11/14/18 11/14/18 11/15/18 18:30 18:30 19:50 WBC 7.1 Absolute Lymphs (auto) 1.9 Lymphocytes 26 Nucleated RBCs TNP ESR Troponin I 0.45 H C-Reactive Protein Opiates Screen Methadone Screen Barbiturate Screen Phencyclidine Screen Ur Amphetamines Screen MDMA (Ecstasy) Screen Benzodiazepines Screen Cocaine Screen U Marijuana (THC) Screen Absolute CD3 Count 1370 % CD3+ Lymphocytes 72.1 Absolute CD4 [place] 910 % CD4+ Lymphocyte 47.9 CD4/CD8 Ratio 2.06 % CD8+ Lymphocyte 23.2 Absolute CD8 Count 441 HSV I IgG Ab 22.50 H HSV II Inhibition IgG 4.92 H 11/15/18 11/15/18 11/16/18 19:50 21:30 06:15 WBC Absolute Lymphs (auto) Lymphocytes Nucleated RBCs ESR 8 Troponin I C-Reactive Protein < 0.3 Opiates Screen Negative Methadone Screen Negative Barbiturate Screen Negative Phencyclidine Screen Negative Ur Amphetamines Screen Negative MDMA (Ecstasy) Screen Negative Benzodiazepines Screen Negative Cocaine Screen Negative U Marijuana (THC) Screen Negative Absolute CD3 Count % CD3+ Lymphocytes Absolute CD4 [place] % CD4+ Lymphocyte CD4/CD8 Ratio % CD8+ Lymphocyte Absolute CD8 Count HSV I IgG Ab HSV II Inhibition IgG ECHO 11/15/18 Interpretation Summary Left ventricular systolic function is normal. Ejection Fraction = 60-65%. Apical hypertrophy is present. The right ventricle is normal in size and function. There is mild tricuspid regurgitation. Right ventricular systolic pressure is normal. Trivial pericardial effusion not hemodynamically significant [id number] MRI/BRAIN MRI W&W/O CONTRAST [id number] MRI/BRAIN MRA W/O CONTRAST Change in mental status. Questionable stroke or seizure. History of HIV MRI of the brain without and following intravenous contrast. Multiplanar T1-T2 sequences were obtained followed by postcontrast T1 axial, coronal and sagittal images. 13 mL of ProHance was intravenously injected. Compared to prior of the head dated 11/14/2018 There is mild volume loss. The ventricles and basal cisterns appear unremarkable. Minimal periventricular and subcortical chronic microvascular ischemic disease changes are present. No mass lesion or intracranial hemorrhage are identified. The hippocampi are symmetric. Note is made of a tiny focus of restricted diffusion in the right frontal lobe, anterior/ inferiorly along anterior margin of the right sylvian fissure that appears to be hypointense on the ADC images suspicious for an acute/subacute lacunar infarct. No abnormal intracranial enhancement is identified. There is no shift of the midline structures. The craniocervical junction appears unremarkable. Both orbits appear unremarkable. Flow voids are present within the central intracranial arteries circulation. The paranasal sinuses are well aerated. There is a trace of left mastoid effusion. IMPRESSION: Mild volume loss and minimal periventricular chronic microvascular ischemic disease changes. Likely tiny acute/subacute lacunar infarct in the right frontal lobe, along anterior margin of the right sylvian fissure. Otherwise, no acute intracranial pathology or abnormal enhancement is identified. MRA of the brain. A noncontrast MRA of the brain was performed utilizing 3-D [id number] technique. Source and MIP images were reviewed. In the anterior circulation, no gross focal stenosis, aneurysm or major artery cutoff is seen. In the posterior circulation, the vertebrobasilar junction, basilar artery and tip appear unremarkable. Both posterior cerebral and superior cerebellar arteries appear unremarkable. Impression: No gross focal stenosis, aneurysm, major artery cutoff or vascular malformation is identified within the central intracranial arterial circulation HOSPITAL COURSE: Date of Admission:11/14/18 Date of Discharge: 11/16/18 ASSESSMENT/PLAN: 63 yo F PMH of HIV on HAART (follows with Dr. Jc, CD4 count 910 on 11/14/18) , HTN, HLD, afib s/p ablation, TIA?, and hypertrophic cardiomyopathy p/w acute onset confusion and short term amnesia. 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 labs grossly unremarkable, ammonia, ESR/CRP, B12 ( 500), Folate, TSH (2.47), RPR nl, UA/U-tox neg. Lipid panel nl, A1c 5.6. Lyme serology pending. +HSV IgG. carotid u/s - w/o hemodynamically significant stenosis. ECHO nl EF, results noted above. MRI/MRA - chronic microvascular disease, tiny acute/subacute infarct R frontal lobe along anterior margin of the right sylvian fissure. pt was started on ASA and was continued on statin ( LDL 91). Lipitor increased to 40mg will need repeat LFTs and Lipid panel in 4 weeks). Neurology consulted - concern/suspicion for absence seizure and recommend out-patient EEG. #HIV on HAART - (per PCP, viral load 34 and CD4 count 926 on 08/27/18). Only is aware of her HIV status, daughters not aware CD4 count 910 on 11/14/18 ID consult: Matthias c/w ruben Tropinemia - 2/2 demand ischemia. EKG NSR 60, LVH, TWI I, aVL, V2-V6, no std/troy , QTC 464 msec. Trop 0.50, but no chest pain. 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 your EKG and echo showed no signs of heart attack. your MRI scan showed signs of a small stroke. we started you on a blood thinner called aspirin to help prevent further strokes. Please continue to take aspirin once a day. we also switched your cholesterol medication to help lower your cholesterol and risk for further strokes. We have started you on Lipitor 40mg at night. Please stop taking pravastatin. Please have your primary care physician check your cholesterol levels and liver function test in 4 weeks while starting this new med, Lipitor Please follow up with Neurologist Dr. Melissa within 1 week to get an EEG of the brain. This will test and allow us to monitor the electrical activity of your brain and to see whether you are having any seizure activity as this may be another reason as to why you were confused and were having memory problems. We started you on a new medication called Keppra for seizure. Please continue taking Keppra 750mg (three 250mg tablets) twice a day/about every 12 hours. Please resume your other home meds Please follow up with your primary care physician within 1 week. Please follow up with Neurologist Dr. Melissa within 1 week If you experience any worsening in memory or any speech slurring,, weakness, numbness, confusion, blurry vision, chest pain, shortness of breath, nausea, vomit, please call 911 or go to the ER Referrals: Osmar Sanchez MD [Staff Physician] - 1 Week Too Melissa DO [Staff Physician] - 1 Week Disposition: HOME - Home Medications Comprehensive Discharge Medication List: Ambulatory Orders Bictegrav/Emtricit/Tenofov Ala [Biktarvy 50-200-25 mg Tablet] 1 tab PO DAILY Fluticasone Prop 0.05% Nasal [Flonase -] 1 spray PRN 11/14/18 Metoprolol Succinate [Toprol XL -] 100 mg PO DAILY 11/14/18 Pravastatin Sodium 20 mg PO DAILY 11/14/18 This patient is new to me today: Yes Date on this admission: 11/18/18 Emergency Visit: Yes ED Registration Date: 11/14/18 Care time: The patient presented to the Emergency Department on the above date and was hospitalized for further evaluation of their emergent condition. Critical Care patient: No - Discharge Referral Referred to [facility] No
[2018-11-16] MEDS ORDERED: PT OWN MED DRAWER 7, Y5N ONE ×2 (17:27→17:50)
[2018-11-16] MEDS: PATIENT'S OWN MEDICATION (NON-FORMULARY) (Bictegrav/Emtricit/Tenofov Ala 1 TAB) PO SCH (17:48)
--- NOTE | 2018-11-16 17:53 | PN ---
Progress Note (short form) - Note Progress Note: 63 yo F PMH of HIV (per PCP, viral load 34 and CD4 count 926 on Aug 27 2018), HTN, HLD, TIA?, and hypertrophic cardiomyopathy p/w acute onset confusion and short term amnesia. The daughters who are at bedside state that patient was completely normal yesterday when she went to sleep. They were speaking with her all day and she was her normal self. Today, when the patient woke up she was fine, spoke w/ daughter at 9am and was fine. At 915am pt called her daughter back and was crying hysterically because the patient said she could not remember what was going on and she is confused. The patient endorses mild lightheadedness but feels steady on her feet. She also endorses mild chronic constipation. GEORGES x 3 weeks, no HX of migraines, MRI IMPRESSION: Mild volume loss and minimal periventricular chronic microvascular ischemic disease changes. Likely tiny acute/subacute lacunar infarct in the right frontal lobe, along anterior margin of the right sylvian fissure. Otherwise, no acute intracranial pathology or abnormal enhancement is identified. MRA of the brain. A noncontrast MRA of the brain was performed utilizing 3-D rikk-zo-amipls technique. Source and MIP images were reviewed. In the anterior circulation, no gross focal stenosis, aneurysm or major artery cutoff is seen. In the posterior circulation, the vertebrobasilar junction, basilar artery and tip appear unremarkable. Both posterior cerebral and superior cerebellar arteries appear unremarkable. FU : scan noted apt feeling better but does admit not 100% , this AM , 2 x with confusionla event, blanking out , as if in clouds and losing awareness family agrees still not at baseline stressor but this is not typical no HX of SZ - Past Medical History ...: No - Alcohol/Substance Use Hx Alcohol Use: No - Smoking History Smoking history: Never smoked Home Medications - Allergies Allergies/Adverse Reactions: Allergies Allergy/AdvReac Type Severity Reaction Status Date / Time No Known Allergies Allergy Verified 11/14/18 11:40 - Home Medications Home Medications: Ambulatory Orders Bictegrav/Emtricit/Tenofov Ala [Biktarvy 50-200-25 mg Tablet] 1 tab PO DAILY Fluticasone Prop 0.05% Nasal [Flonase -] 1 spray PRN 11/14/18 Metoprolol Succinate [Toprol XL -] 100 mg PO DAILY 11/14/18 Pravastatin Sodium 20 mg PO DAILY 11/14/18 Physical Exam-Neuro Vital Signs: Vital Signs Temperature 98.2 F 11/16/18 14:28 Pulse Rate 58 L 11/16/18 14:28 Respiratory Rate 20 11/16/18 14:28 Blood Pressure 112/65 11/16/18 14:28 O2 Sat by Pulse Oximetry (%) 98 11/16/18 09:00 Constitutional: Yes: Well Nourished Labs: CBC, BMP 11/15/18 05:30 11/15/18 05:30 INR, PTT INR 0.98 (0.83-1.09) 11/14/18 13:09 - Neuro Exam Level Of Consciousness: Yes: Alert, Oriented to Person (awake, alert, decraesed ST memory for yesterday events, LT memory intact, no focal weakness, no nuchal rigidity, relfexes NL ) Problem List - Problems (1) Transient global amnesia Code(s): G45.4 - TRANSIENT GLOBAL AMNESIA (2) Headache Code(s): R51 - HEADACHE (3) Change in mental status Code(s): R41.82 - ALTERED MENTAL STATUS, UNSPECIFIED Assessment/Plan 63 yo F PMH of HIV (per PCP, viral load 34 and CD4 count 926 on Aug 27 2018), HTN, HLD, TIA?, and hypertrophic cardiomyopathy p/w acute onset confusion and short term amnesia. The daughters who are at bedside state that patient was completely normal yesterday when she went to sleep. They were speaking with her all day and she was her normal self. Today, when the patient woke up she was fine, spoke w/ daughter at 9am and was fine. At 915am pt called her daughter back and was crying hysterically because the patient said she could not remember what was going on and she is confused. The patient endorses mild lightheadedness but feels steady on her feet. She also endorses mild chronic constipation. GEORGES x 3 weeks, no HX of migraines, MRI IMPRESSION: Mild volume loss and minimal periventricular chronic microvascular ischemic disease changes. Likely tiny acute/subacute lacunar infarct in the right frontal lobe, along anterior margin of the right sylvian fissure. Otherwise, no acute intracranial pathology or abnormal enhancement is identified. MRA of the brain. A noncontrast MRA of the brain was performed utilizing 3-D [id number]-[id number] technique. Source and MIP images were reviewed. In the anterior circulation, no gross focal stenosis, aneurysm or major artery cutoff is seen. In the posterior circulation, the vertebrobasilar junction, basilar artery and tip appear unremarkable. Both posterior cerebral and superior cerebellar arteries appear unremarkable. AP : HX of HIV , with new onset confusional episode yesterday, suspicious for episode of transient global amnesia less likely TIA , though does not full explain her new onset GEORGES MRI very tiny diffusion + right temopral area , ? stigmata for seizure vs stroke vs TGA given events , will give her keppra 500BID empirically start ASA as welll outpt 3 day EEG team aware DR. WOLFF Problem List - Problems (1) Transient global amnesia Code(s): G45.4 - TRANSIENT GLOBAL AMNESIA (2) Headache Code(s): R51 - HEADACHE (3) Change in mental status Code(s): R41.82 - ALTERED MENTAL STATUS, UNSPECIFIED
[2018-11-16] MEDS: SENNOSIDES 8.6MG TABLET (FP) PO SCH (21:12)
[2018-11-16] MEDS: ATORVASTATIN CA 40 MG TABLET (FP) PO SCH (21:12)
[2018-11-17] MEDS: DOCUSATE SODIUM 100 MG CAPSULE (FP) PO SCH ×3 (06:06→21:18)
[2018-11-17] MEDS ORDERED: PT OWN MED DRAWER 7, Y5N ONE (08:26)
[2018-11-17] MEDS: ENOXAPARIN NA (PORCINE) 40 MG/0.4 ML DISP.SYRIN SQ SCH (10:30)
[2018-11-17] MEDS: ASPIRIN 81 MG CHEWABLE TABLETS PO SCH (10:31)
[2018-11-17] MEDS: levETIRAcetam 500 MG TABLET (FP) PO SCH (10:31)
[2018-11-17] MEDS: POLYETHYLENE GLYCOL 3350 119 GM BTL PO SCH (10:32)
--- NOTE | 2018-11-17 11:59 | PN ---
Progress Note (short form) - Note Progress Note: awake and alert notes continued headache episode of confusion again this am not sure where she was Vital Signs Period Temp Pulse Resp BP Sys/Bahena Pulse Ox Last 24 Hr 97.6 F-98.2 F 49-61 18-20 107-125/64-79 98 cor-rrr lungs clear abd soft,nt ext no edema CBC, BMP 11/15/18 05:30 11/15/18 05:30 cd4 910 esr 6 crp less than .6 rpr negative lyme pending MRI reviewed with radiologist - no signs of sinusitis clinicallly no signs of meningitis a/p headaches- still persist, needed tylenol this am intermittent confusion, episode this am ?seizures would defer to neurology for further workup ?need for LP if seizure w/u is negative esr/crp normal given her robust cd4 count and viral suppression she is unlikely to have an OI- will check a serum cryptococcal antigen for completeness would continue her biktarvy Problem List - Problems (1) Change in mental status Code(s): R41.82 - ALTERED MENTAL STATUS, UNSPECIFIED (2) Headache Code(s): R51 - HEADACHE (3) HIV (human immunodeficiency virus infection) Code(s): B20 - HUMAN IMMUNODEFICIENCY VIRUS [HIV] DISEASE
--- NOTE | 2018-11-17 14:17 | PN ---
Progress Note (short form) - Note Progress Note: s: no cp sob palps dizzy o: Vital Signs Period Temp Pulse Resp BP Sys/Bahena Pulse Ox Last 24 Hr 97.6 F-98.2 F 49-61 18-20 107-125/64-79 98 nad no jvd rrr s1s2 no mrg cta bl nl eff aaox3 abd nt nd pos bs no le e/c/c no jaundice diaphoresis Current Medications Acetaminophen (Tylenol -) 1,000 mg PO Q6H PRN PRN Reason: HEADACHE Last Admin: 11/16/18 21:12 Dose: 1,000 mg Aspirin (Asa -) 81 mg PO DAILY [facility] Last Admin: 11/17/18 10:31 Dose: 81 mg Atorvastatin Calcium (Lipitor -) 40 mg PO HS [facility] Last Admin: 11/16/18 21:12 Dose: 40 mg Docusate Sodium (Colace -) 100 mg PO TID [facility] Last Admin: 11/17/18 13:24 Dose: 100 mg Enoxaparin Sodium (Lovenox -) 40 mg SQ DAILY [facility] Last Admin: 11/17/18 10:30 Dose: 40 mg Levetiracetam (Keppra -) 500 mg PO BID [facility] Last Admin: 11/17/18 10:31 Dose: 500 mg Metoprolol Succinate (Toprol Xl -) 100 mg PO DAILY [facility] Last Admin: 11/17/18 10:32 Dose: 100 mg Non-Formulary Medication (Bictegrav/Emtricit/Tenofov Ala) 1 tab PO DAILY@1800 [facility] Last Admin: 11/16/18 17:48 Dose: 1 tab Polyethylene Glycol (Miralax (For Daily Use) -) 17 gm PO DAILY [facility] Last Admin: 11/17/18 10:32 Dose: Not Given Senna (Senna -) 2 tab PO HS [facility] Last Admin: 11/16/18 21:12 Dose: 2 tab cxr: no chf ecg: sr, lvh with repol changes tele: sr, sinus juan echo 10/2018: nl lvef, apical hypertrophy, nl rv, mild tr, nl rvsp a/p: 63 f hx hiv, htn, hld, HCM, afib s/p ablation, here with ams. memory loss, ams: -plans per neuro htn: -cont bb hld: -cont statin hcm: -echo stable here -cont bb, outpt f/u with her waredresser afib: -s/p ablation, in sr here -not on ac -outpt f/u elevated trops: -trops with borderline elevation and flat trend with nl ck, not c/w acs -no cp/sob
--- NOTE | 2018-11-17 16:24 | PN ---
Progress Note (short form) - Note Progress Note: 63 yo F PMH of HIV (per PCP, viral load 34 and CD4 count 926 on Aug 27 2018), HTN, HLD, TIA?, and hypertrophic cardiomyopathy p/w acute onset confusion and short term amnesia. The daughters who are at bedside state that patient was completely normal yesterday when she went to sleep. They were speaking with her all day and she was her normal self. Today, when the patient woke up she was fine, spoke w/ daughter at 9am and was fine. At 915am pt called her daughter back and was crying hysterically because the patient said she could not remember what was going on and she is confused. The patient endorses mild lightheadedness but feels steady on her feet. She also endorses mild chronic constipation. GEORGES x 3 weeks, no HX of migraines, MRI IMPRESSION: Mild volume loss and minimal periventricular chronic microvascular ischemic disease changes. Likely tiny acute/subacute lacunar infarct in the right frontal lobe, along anterior margin of the right sylvian fissure. Otherwise, no acute intracranial pathology or abnormal enhancement is identified. MRA of the brain. A noncontrast MRA of the brain was performed utilizing 3-D [id number]-ko-ynhlrt technique. Source and MIP images were reviewed. In the anterior circulation, no gross focal stenosis, aneurysm or major artery cutoff is seen. In the posterior circulation, the vertebrobasilar junction, basilar artery and tip appear unremarkable. Both posterior cerebral and superior cerebellar arteries appear unremarkable. FU : scan noted again this am with confusional spell , comes back to baseline, started on Keppra 500BID yesterday stressor but this is not typical no HX of SZ - Past Medical History ...: No - Alcohol/Substance Use Hx Alcohol Use: No - Smoking History Smoking history: Never smoked Home Medications - Allergies Allergies/Adverse Reactions: Allergies Allergy/AdvReac Type Severity Reaction Status Date / Time No Known Allergies Allergy Verified 11/14/18 11:40 - Home Medications Home Medications: Ambulatory Orders Bictegrav/Emtricit/Tenofov Ala [Biktarvy 50-200-25 mg Tablet] 1 tab PO DAILY Fluticasone Prop 0.05% Nasal [Flonase -] 1 spray PRN 11/14/18 Metoprolol Succinate [Toprol XL -] 100 mg PO DAILY 11/14/18 Pravastatin Sodium 20 mg PO DAILY 11/14/18 Physical Exam-Neuro Vital Signs: Vital Signs Temperature 98.2 F 11/16/18 14:28 Pulse Rate 58 L 11/16/18 14:28 Respiratory Rate 20 11/16/18 14:28 Blood Pressure 112/65 11/16/18 14:28 O2 Sat by Pulse Oximetry (%) 98 11/16/18 09:00 Constitutional: Yes: Well Nourished Labs: CBC, BMP 11/15/18 05:30 11/15/18 05:30 INR, PTT INR 0.98 (0.83-1.09) 11/14/18 13:09 - Neuro Exam Level Of Consciousness: Yes: Alert, Oriented to Person (awake, alert, decraesed ST memory for yesterday events, LT memory intact, no focal weakness, no nuchal rigidity, relfexes NL ) Problem List - Problems (1) Transient global amnesia Code(s): G45.4 - TRANSIENT GLOBAL AMNESIA (2) Headache Code(s): R51 - HEADACHE (3) Change in mental status Code(s): R41.82 - ALTERED MENTAL STATUS, UNSPECIFIED Assessment/Plan 63 yo F PMH of HIV (per PCP, viral load 34 and CD4 count 926 on Aug 27 2018), HTN, HLD, TIA?, and hypertrophic cardiomyopathy p/w acute onset confusion and short term amnesia. The daughters who are at bedside state that patient was completely normal yesterday when she went to sleep. They were speaking with her all day and she was her normal self. Today, when the patient woke up she was fine, spoke w/ daughter at 9am and was fine. At 915am pt called her daughter back and was crying hysterically because the patient said she could not remember what was going on and she is confused. The patient endorses mild lightheadedness but feels steady on her feet. She also endorses mild chronic constipation. GEORGES x 3 weeks, no HX of migraines, MRI IMPRESSION: Mild volume loss and minimal periventricular chronic microvascular ischemic disease changes. Likely tiny acute/subacute lacunar infarct in the right frontal lobe, along anterior margin of the right sylvian fissure. Otherwise, no acute intracranial pathology or abnormal enhancement is identified. MRA of the brain. A noncontrast MRA of the brain was performed utilizing 3-D khny-pf-eiocdi technique. Source and MIP images were reviewed. In the anterior circulation, no gross focal stenosis, aneurysm or major artery cutoff is seen. In the posterior circulation, the vertebrobasilar junction, basilar artery and tip appear unremarkable. Both posterior cerebral and superior cerebellar arteries appear unremarkable. AP : HX of HIV , with new onset confusional episode yesterday, suspicious for episode of transient global amnesia less likely TIA , though does not full explain her new onset GEORGES ESR NL , TOX (-) MRI very tiny diffusion + right temopral area , ? stigmata for seizure vs stroke vs TGA INC keppra 750 BID empirically start ASA as welll outpt 3 day EEG plan for Dc in AM (if she has another event can INC KEPPRA 1000BID prior to DC) DR WOLFF Problem List - Problems (1) Transient global amnesia Code(s): G45.4 - TRANSIENT GLOBAL AMNESIA (2) Headache Code(s): R51 - HEADACHE (3) Change in mental status Code(s): R41.82 - ALTERED MENTAL STATUS, UNSPECIFIED
--- NOTE | 2018-11-17 18:12 | PN ---
Progress Note (short form) - Note Progress Note: SUBJECTIVE: Still has some short-term memory loss but long-term memory intact. Reports 2-3 episodes of spacing out over the last 24 hours, not associated with LOC or tonic/clonic seizure activity. No fever/chills. Intermittent headache, no visual disturbance. No limb numbness/weakness/tingling OBJECTIVE: Afebrile, Hemodynamically Stable. AAO x 3. Last Vital Signs Temp Pulse Resp BP Pulse Ox 98.3 F 61 20 122/69 98 11/17/18 14:15 11/17/18 14:15 11/17/18 14:15 11/17/18 14:15 11/16/18 21:00 HEENT - Atraumatic, Normocephalic. Neuro - AAO x 3 SOFIE. Tone/Power normal all 4 extremities Heart - S1, S2, RRR Lungs - clear to auscultation, no crackles/wheeze. Abdomen - Soft, non-tender. Bowel Sounds normal Extremities - no edema. No calf tenderness Laboratory Results - last 24 hr 11/14/18 18:30 HSV I&II IgM Ab <0.91 Current Medications Generic Name Dose Route Start Last Admin Trade Name Freq PRN Reason Stop Dose Admin Acetaminophen 1,000 mg 11/15/18 11:48 11/16/18 21:12 Tylenol - PO 1,000 mg Q6H PRN Administration HEADACHE Aspirin 81 mg 11/16/18 10:00 11/17/18 10:31 Asa - PO 81 mg DAILY [facility] Administration Atorvastatin Calcium 40 mg 11/16/18 14:35 11/16/18 21:12 Lipitor - PO 40 mg HS [facility] Administration Docusate Sodium 100 mg 11/14/18 22:00 11/17/18 13:24 Colace - PO 100 mg TID [facility] Administration Enoxaparin Sodium 40 mg 11/15/18 16:30 11/17/18 10:30 Lovenox - SQ 40 mg DAILY [facility] Administration Levetiracetam 250 mg/ 750 mg 11/17/18 22:00 Levetiracetam 500 mg PO BID [facility] Metoprolol Succinate 100 mg 11/15/18 10:00 11/17/18 10:32 Toprol Xl - PO 100 mg DAILY [facility] Administration Non-Formulary Medication 1 tab 11/15/18 18:00 11/16/18 17:48 Bictegrav/Emtricit/Tenofov Ala PO 1 tab DAILY@1800 [facility] Administration Polyethylene Glycol 17 gm 11/14/18 16:45 11/17/18 10:32 Miralax (For Daily Use) - PO Not Given DAILY [facility] Senna 2 tab 11/14/18 22:00 11/16/18 21:12 Senna - PO 2 tab HS [facility] Administration ASSESSMENT AND PLAN: 63 year old female with HIV on HAART (follows with Dr. Jc), HTN, HLD, Hypertrophic Cardiomyopathy, Arrhythmia s/p septal ablation, presents with acute confusion and short-term amnesia. 1. Transient Amnesia ?related to acute/subacute CVA reported on MRI versus absence seizures CT Brain negative Ammonia level normal. MRI/MRA - chronic microvascular disease, tiny acute/subacute infarct R frontal lobe. Carotid Duplex - mucosal plaques, not hemodynamically significant. B12 - 500/RPR non-reactive/TSH level 2.47 UA neg/Utox neg Neurology consulted - recommend out-patient 3 day EEG Lyme serology pending Started on Aspirin and continued on Statin. LDL 91. Lipitor increased to 40mg with repeat LFTs and Lipid panel in 4 weeks Started empirically on Keppra by Neuro - dose increased today to 750mg BID. 2. HIV on HAART CD4 count 910 CPR < 0.3/ESR 8 Blood Cx pending. Unlikely infectious etiology for transient amnesic episodes as per ID 3. History of Hypertrophic Cardiomyopathy and arrhythmia s/p Ablation ECG - NSR 60, LVH with repolarization abnormalities, T wave inversion TropI 0.5, likely baseline elevation - no chest pain/palpitations Echo - normal EF, Cardiology consulted. Continue Aspirin, BB, Statin 4. HTN - Continue Metoprolol. 5. HLD - Lipitor dose increased to 40mg DVT Px - Lovenox SQ Neuro recommends another 24 hour observation on increased dose of Keppra. Visit type - Emergency Visit Emergency Visit: Yes ED Registration Date: 11/14/18 Care time: The patient presented to the Emergency Department on the above date and was hospitalized for further evaluation of their emergent condition. - New Patient This patient is new to me today: No - Critical Care Critical Care patient: No - Discharge Referral Referred to [facility] Med P.C.: No
[2018-11-17] MEDS: PATIENT'S OWN MEDICATION (NON-FORMULARY) (Bictegrav/Emtricit/Tenofov Ala 1 TAB) PO SCH (18:31)
[2018-11-17] MEDS ORDERED: levETIRAcetam 500 MG TABLET (FP) PO ONE (20:29)
[2018-11-17] MEDS ORDERED: levETIRAcetam 250 MG TABLET (FP) PO ONE (20:29)
[2018-11-17] MEDS: ATORVASTATIN CA 40 MG TABLET (FP) PO SCH (21:19)
[2018-11-17] MEDS: SENNOSIDES 8.6MG TABLET (FP) PO SCH (21:19)
[2018-11-18] MEDS: DOCUSATE SODIUM 100 MG CAPSULE (FP) PO SCH ×2 (06:24→13:42)
[2018-11-18] MEDS ORDERED: levETIRAcetam 250 MG TABLET (FP) PO ONE (07:43)
[2018-11-18] MEDS ORDERED: levETIRAcetam 500 MG TABLET (FP) PO ONE (07:44)
[2018-11-18 09:11] VITALS: BP 105/74; PULSE 60; TEMP 98
[2018-11-18] MEDS: ASPIRIN 81 MG CHEWABLE TABLETS PO SCH (11:09)
[2018-11-18] MEDS: ENOXAPARIN NA (PORCINE) 40 MG/0.4 ML DISP.SYRIN SQ SCH (11:09)
[2018-11-18] MEDS: POLYETHYLENE GLYCOL 3350 119 GM BTL PO SCH (11:09)
--- NOTE | 2018-11-18 11:33 | DS ---
Physical Exam: SUBJECTIVE: Patient seen and examined at bedside. no acute events overnight. still w/ some confusion and short term amnesia but improving w/ keppra, chcf memory appears to be intact, pt remembers me from yesterday. denies fever, chills, cp ,sob, n/v/d, urinary sxs. At admission: NIHSS 0, MMSE 26 OBJECTIVE: Vital Signs Period Temp Pulse Resp BP Sys/[place] Pulse Ox Last 24 Hr 97.6 F-98.3 F 56-64 20-20 103-122/55-74 95-96 PHYSICAL EXAM GENERAL: AOX3 NAD, short term amnesia improving, chcf memory appears to be intact HEAD: NCAT EYES: PERRLA, EOMI, sclera anicteric, conjunctiva clear. No lid lag. EARS, NOSE, THROAT: nares patent, oropharynx clear without exudates. MMM NECK: Normal range of motion, supple without lymphadenopathy, JVD, or masses. LUNGS: CTAB HEART: RRR, normal S1 and S2 without m/r/g ABDOMEN: Soft, NTND, normoactive bowel sounds, no guarding, no rebound, no masses. No hepatomegaly or splenomegaly. MUSCULOSKELETAL: Normal range of motion at all joints. No bony deformities or tenderness. No CVA tenderness. UPPER EXTREMITIES: 2+ pulses, warm, well-perfused. No cyanosis. No clubbing. No peripheral edema. LOWER EXTREMITIES: 2+ pulses, warm, well-perfused. No calf tenderness. No peripheral edema. NEUROLOGICAL: Cranial nerves II-XII intact. Normal speech. Normal gait. FNT nl , sensation strength reflexes grossly intact PSYCHIATRIC: Cooperative. Good eye contact. Appropriate mood and affect. SKIN: Warm, dry, normal turgor, no rashes or lesions noted, normal capillary refill. LABS ECHO 11/15/18 Interpretation Summary Left ventricular systolic function is normal. Ejection Fraction = 60-65%. Apical hypertrophy is present. The right ventricle is normal in size and function. There is mild tricuspid regurgitation. Right ventricular systolic pressure is normal. Trivial pericardial effusion not hemodynamically significant [id number] MRI/BRAIN MRI W&W/O CONTRAST MRI/BRAIN MRA W/O CONTRAST Change in mental status. Questionable stroke or seizure. History of HIV MRI of the brain without and following intravenous contrast. Multiplanar T1-T2 sequences were obtained followed by postcontrast T1 axial, coronal and sagittal images. 13 mL of ProHance was intravenously injected. Compared to prior of the head dated 11/14/2018 There is mild volume loss. The ventricles and basal cisterns appear unremarkable. Minimal periventricular and subcortical chronic microvascular ischemic disease changes are present. No mass lesion or intracranial hemorrhage are identified. The hippocampi are symmetric. Note is made of a tiny focus of restricted diffusion in the right frontal lobe, anterior/ inferiorly along anterior margin of the right sylvian fissure that appears to be hypointense on the ADC images suspicious for an acute/subacute lacunar infarct. No abnormal intracranial enhancement is identified. There is no shift of the midline structures. The craniocervical junction appears unremarkable. Both orbits appear unremarkable. Flow voids are present within the central intracranial arteries circulation. The paranasal sinuses are well aerated. There is a trace of left mastoid effusion. IMPRESSION: Mild volume loss and minimal periventricular chronic microvascular ischemic disease changes. Likely tiny acute/subacute lacunar infarct in the right frontal lobe, along anterior margin of the right sylvian fissure. Otherwise, no acute intracranial pathology or abnormal enhancement is identified. MRA of the brain. A noncontrast MRA of the brain was performed utilizing 3-D [id number] technique. Source and MIP images were reviewed. In the anterior circulation, no gross focal stenosis, aneurysm or major artery cutoff is seen. In the posterior circulation, the vertebrobasilar junction, basilar artery and tip appear unremarkable. Both posterior cerebral and superior cerebellar arteries appear unremarkable. Impression: No gross focal stenosis, aneurysm, major artery cutoff or vascular malformation is identified within the central intracranial arterial circulation HOSPITAL COURSE: Date of Admission:11/14/18 Date of Discharge: 11/18/18 63 yo F PMH of HIV on HAART (follows with Dr. Jc, CD4 count 910 on 11/14/18) , HTN, HLD, afib s/p ablation, TIA?, and hypertrophic cardiomyopathy p/w acute onset confusion and short term amnesia. -Neuro consult: Belén -Cardio consult: Rito -ID consult: Matthias Admitted for Acute Encephalopathy and short term amnesia suspected to be 2/2 stroke vs seizure - pt w/ short term amnesia, AOX3, neuro exam nl, intermediate project manager memory appears to be intact, NIHSS 0, MMSE 26 (pt could not recall 3 items, and date), VSS, afebrile no leukocytosis or other signs of infx, CXR no acute pathology, Head CT negative. labs grossly unremarkable, ammonia, ESR/CRP, B12 ( 500), Folate, TSH (2.47), RPR nl, UA/U-tox neg. Lipid panel nl, A1c 5.6. Lyme serology pending. +HSV IgG. carotid u/s - w/o hemodynamically significant stenosis. ECHO nl EF, results noted above. MRI/MRA - chronic microvascular disease, tiny acute/subacute infarct R frontal lobe along anterior margin of the right sylvian fissure. pt was started on ASA and was continued on statin ( LDL 91). Lipitor increased to 40mg will need repeat LFTs and Lipid panel in 4 weeks). Neurology consulted - concern/suspicion for absence seizure and recommend out-patient EEG and starting Keppra. Keppra was titrated up from 500 to 750mg BID. pt will f/u in outpt office in 3 days for EEG. #HIV on HAART - (per PCP, viral load 34 and CD4 count 926 on 08/27/18). Only is aware of her HIV status, daughters not aware CD4 count 910 on 11/14/18 ID consult: Matthias c/w ruben Tropinemia - 2/2 demand ischemia. EKG NSR 60, LVH, TWI I, aVL, V2-V6, no std/troy , QTC 464 msec. Trop 0.50, but no chest pain. coronary calcium score was 27 in Jul 2017 -trop downtrended 0.5...0.49...0.46 -per cardio, trops with borderline elevation and flat trend with nl ck, not c/w acs -s/p ASA 325 -c/w statin/BB -Echo - normal EF afib s/p ablation - in NSR here -not on ac -outpt f/u, pt's Manager Scheduling is dr missael pedro Medically Stable for discharge with Neuro follow up Minutes to complete discharge: 40 Discharge Summary Reason For Visit: AMNESIA,ELEVATED TROPONIN LEVEL Current Active Problems Change in mental status (Acute) Elevated troponin (Acute) HIV (human immunodeficiency virus infection) (Acute) Headache (Acute) Headache (Acute) Memory loss of unknown cause (Acute) Transient global amnesia (Acute) Condition: Stable - Instructions Diet, Activity, Other Instructions: you came in because you were confused and were having a problem with your short term memory. your EKG and echo showed no signs of heart attack. your MRI scan showed signs of a small stroke. we started you on a blood thinner called aspirin to help prevent further strokes. Please continue to take aspirin once a day. we also switched your cholesterol medication to help lower your cholesterol and risk for further strokes. We have started you on Lipitor 40mg at night. Please stop taking pravastatin. Please have your primary care physician check your cholesterol levels and liver function test in 4 weeks while starting this new med, Lipitor Please follow up with Neurologist Dr. Melissa within 1 week to get an EEG of the brain. This will test and allow us to monitor the electrical activity of your brain and to see whether you are having any seizure activity as this may be another reason as to why you were confused and were having memory problems. We started you on a new medication called Keppra for seizure. Please continue taking Keppra 750mg (three 250mg tablets) twice a day/about every 12 hours. Please resume your other home meds Please follow up with your primary care physician within 1 week. Please follow up with Neurologist Dr. Melissa within 1 week If you experience any worsening in memory or any speech slurring,, weakness, numbness, confusion, blurry vision, chest pain, shortness of breath, nausea, vomit, please call 911 or go to the ER Referrals: Osmar Sanchez MD [Staff Physician] - 1 Week Too Melissa DO [Staff Physician] - 1 Week Disposition: HOME - Home Medications Comprehensive Discharge Medication List: Ambulatory Orders Bictegrav/Emtricit/Tenofov Ala [Biktarvy 50-200-25 mg Tablet] 1 tab PO DAILY Fluticasone Prop 0.05% Nasal [Flonase -] 1 spray PRN 11/14/18 Metoprolol Succinate [Toprol XL -] 100 mg PO DAILY 11/14/18 Aspirin [ASA -] 81 mg PO DAILY 30 Days #30 tab.chew 11/17/18 Atorvastatin Ca [Lipitor] 40 mg PO HS 30 Days #30 tablet 11/18/18 levETIRAcetam [Keppra -] 750 mg PO BID 30 Days #180 tablet 11/18/18 This patient is new to me today: Yes Date on this admission: 11/18/18 Emergency Visit: Yes ED Registration Date: 11/14/18 Care time: The patient presented to the Emergency Department on the above date and was hospitalized for further evaluation of their emergent condition. Critical Care patient: No - Discharge Referral Referred to [facility] Med P.C.: No
--- NOTE | 2018-11-18 19:02 | PN ---
Teaching Attending Note Name of Resident: Jose Alejandro Sarmiento ATTENDING PHYSICIAN STATEMENT I saw and evaluated the patient. I reviewed the resident's note and discussed the case with the resident. I agree with the resident's findings and plan as documented. SUBJECTIVE: OBJECTIVE: Last Vital Signs Temp Pulse Resp BP Pulse Ox 98 F 60 20 105/74 96 11/18/18 09:00 11/18/18 09:00 11/18/18 09:00 11/18/18 09:00 11/18/18 09:00 Laboratory Results - last 24 hr 11/14/18 18:30 Lyme Screen IgG & IgM <0.91 Discharge Medications Medication Instructions Recorded Bictegrav/Emtricit/Tenofov Ala 1 tab PO DAILY 11/14/18 [Biktarvy 50-200-25 mg Tablet] Fluticasone Prop 0.05% Nasal 1 spray PRN 11/14/18 [Flonase -] Metoprolol Succinate [Toprol XL -] 100 mg PO DAILY 11/14/18 Aspirin [ASA -] 81 mg PO DAILY 30 Days #30 tab.chew 11/17/18 Atorvastatin Ca [Lipitor] 40 mg PO HS 30 Days #30 tablet 11/18/18 levETIRAcetam [Keppra -] 750 mg PO BID 30 Days #180 tablet 11/18/18 ASSESSMENT AND PLAN:
== END 2018-11-18 13:50 | disposition home or self-care (01) | DRG 70 ==
LOC: JER 11:30 → JERBED 14:27 → J4W 16:59
DX: G93.49 Other encephalopathy (principal); I63.81 Other cerebral infarction due to occlusion or stenosis of small artery; I42.2 Other hypertrophic cardiomyopathy; I24.8 Other forms of acute ischemic heart disease; G45.4 Transient global amnesia; I10 Essential (primary) hypertension; E78.5 Hyperlipidemia, unspecified; K59.09 Other constipation; I48.91 Unspecified atrial fibrillation; J32.9 Chronic sinusitis, unspecified; Z21 Asymptomatic human immunodeficiency virus [HIV] infection status
CPT/HCPCS: 36415; 70450-TC; 70544-TC; 70553-TC; 71046-TC-FY; 80053; 80061; 80307; 81003; 82140; 82550; 82553; 82607; 82746; 83036; 83721; 83735; 84100; 84443; 84484; 85025; 85610; 85651; 86140; 86359; 86360; 86593; 86618; 86694; 86695; 86696; 86850; 86900; 86901; 87040; 87899; 93005; 93010; 93306-TC; 93880-TC; 97116-GP; 97161-GP; 99282-25; J7030

== ENCOUNTER 2020-09-21 12:20 | Emergency (ER) | payer BC, OTHER ==
[2020-09-21 12:33] VITALS: BP 138/78; PULSE 84; BMI 29.2
[2020-09-21] MEDS ORDERED: ACETAMINOPHEN 500 MG TABLET (FP) PO ONE (13:47)
[2020-09-21 13:59] LABS: BASO % 0.3 % (0-2.0); HEMATOCRIT 38.6 % (32.4-45.2); LYMPH % 4.5 % (8-40); MCH 32.6 pg (25.7-33.7); MCHC 33.8 g/dl (32.0-36.0); MEAN CELL VOLUME 96.4 fl (80-96); MEAN PLT VOLUME 9.2 fl (7.5-11.1); MONO % 8.1 % (3.8-10.2); NEUT % 87.1 % (42.8-82.8); PLATELET COUNT 143 K/MM3 (134-434); RDW 13.3 % (11.6-15.6); WHITE BLOOD COUNT 12.2 K/mm3 (4.0-10.0)
[2020-09-21 14:08] LABS: INR 1.24 (0.83-1.09); PROTHROMBIN TIME (PATIENT) 14.9 SEC (9.7-13.0)
[2020-09-21 14:10] LABS: ACTIVATED PTT 26.5 SECONDS (25.2-36.5)
[2020-09-21 14:26] LABS: POTASSIUM 4.2 mmol/L (3.5-5.1)
[2020-09-21 14:30] LABS: ALBUMIN 3.8 g/dl (3.4-5.0); CALCIUM 8.7 mg/dL (8.5-10.1); MAGNESIUM 2.1 mg/dL (1.8-2.4)
[2020-09-21 14:35] LABS: BILIRUBIN,TOTAL 0.8 mg/dL (0.2-1); TOT PROT 7.3 g/dl (6.4-8.2)
[2020-09-21 14:38] LABS: N-TERMINAL BNP 2335.3 pg/ml (5-125)
[2020-09-21] MEDS ORDERED: DEXAMETHASONE 4 MG TABLET (FP) PO ONE (15:03)
[2020-09-21 17:07] VITALS: TEMP 99.5
[2020-09-21] MEDS ORDERED: AMOXICILLIN 500 MG CAPSULE (FP) PO ONE (17:18)
[2020-09-21] MEDS ORDERED: AMOX TR/POT CLAV 500MG/125MG TABLETS (FP) ONE (17:27)
== END 2020-09-21 18:12 | disposition home or self-care (01) ==
LOC: JER 12:20
DX: J02.0 Streptococcal pharyngitis (principal)
CPT/HCPCS: 36415; 71045-TC-FY; 80053; 82550; 83735; 83880; 84484; 85025; 85610; 85730; 87880; 93005; 93010; 99285-25; C9803; U0003

== ENCOUNTER 2021-10-30 08:30 | Emergency (ER) | payer OTHER ==
[2021-10-30 08:46] VITALS: TEMP 97.9; BMI 29.2
[2021-10-30] MEDS ORDERED: diazePAM 2 MG TABLET PO ONE (09:37)
[2021-10-30] MEDS ORDERED: LIDOCAINE 5% TOPICAL PATCH TP ONE (09:38)
[2021-10-30] MEDS ORDERED: ONDANSETRON 4 MG TABLET PO ONE (09:38)
[2021-10-30] MEDS ORDERED: diazePAM 2 MG TABLET ONE (09:48)
[2021-10-30] MEDS ORDERED: ONDANSETRON *ODT* 4 MG TABLET ONE (09:48)
[2021-10-30] MEDS ORDERED: LIDOCAINE 5% TOPICAL PATCH ONE (09:49)
[2021-10-30 11:15] VITALS: BP 112/74; PULSE 64
[2021-10-30] MEDS ORDERED: LIDOCAINE PATCH REMOVAL MC SCH (22:00)
== END 2021-10-30 11:16 | disposition home or self-care (01) ==
LOC: JER 08:30
DX: M54.2 Cervicalgia (principal); M54.50 Low back pain, unspecified; M51.36 Other intervertebral disc degeneration, lumbar region
CPT/HCPCS: 72125-TC; 72131-TC; 99284-25

== ENCOUNTER 2022-07-21 10:46 | Emergency (ER) | payer OTHER ==
[2022-07-21 11:20] VITALS: RESP 16; TEMP 98.2; BMI 29.0
[2022-07-21 12:38] VITALS: BP 125/76; PULSE 58
== END 2022-07-21 12:45 | disposition home or self-care (01) ==
LOC: JER 10:46
DX: M54.50 Low back pain, unspecified (principal)
CPT/HCPCS: 99281-25

== ENCOUNTER 2022-08-22 10:28 | Emergency (ER) | payer OTHER ==
[2022-08-22 10:40] VITALS: BP 158/75; PULSE 58; RESP 16; TEMP 98.2; BMI 29.2
[2022-08-22] MEDS ORDERED: IBUPROFEN 600 MG TABLET (FP) PO ONE ×2 (11:49→12:04)
== END 2022-08-22 12:20 | disposition home or self-care (01) ==
LOC: JERFT 10:28
DX: M25.571 Pain in right ankle and joints of right foot (principal); M25.572 Pain in left ankle and joints of left foot; V03.10XA Pedestrian on foot injured in collision with car, pick-up truck or van in traffic accident, initial encounter
CPT/HCPCS: 73610-TC-LT-FY; 73610-TC-RT-FY; 73630-TC-LT; 73630-TC-RT-FY; 99284-25

== ENCOUNTER 2023-01-12 08:45 | Observation (INO) | payer OTHER, BC ==
[2023-01-12 08:56] VITALS: BMI 29.2
[2023-01-12] MEDS ORDERED: ACETAMINOPHEN 1000 MG/100 ML BAG IVPB ONE (09:26)
[2023-01-12] MEDS ORDERED: METOCLOPRAMIDE HCL INJECTION 10 MG/2 ML VIAL IVPB ONE (09:26)
[2023-01-12] MEDS ORDERED: SODIUM CHLORIDE 0.9% 500 ML INFUS.BAG IV ONE (09:26)
[2023-01-12 09:48] LABS: BASO % 0.6 % (0-2.0); EOS % 2.8 % (0-4.5); HEMATOCRIT 42.3 % (32.4-45.2); HEMOGLOBIN 14.5 GM/dL (10.7-15.3); LYMPH % 30.1 % (8-40); MCH 32.1 pg (25.7-33.7); MCHC 34.2 g/dl (32.0-36.0); MEAN CELL VOLUME 93.8 fl (80-96); MEAN PLT VOLUME 8.9 fl (7.5-11.1); MONO % 8.3 % (3.8-10.2); NEUT % 58.2 % (42.8-82.8); PLATELET COUNT 228 10^3/uL (134-434); RBC 4.51 M/mm3 (3.60-5.2); RDW 13.3 % (11.6-15.6); WHITE BLOOD COUNT 5.2 K/mm3 (4.0-10.0)
[2023-01-12] MEDS ORDERED: METOCLOPRAMIDE HCL INJECTION 10 MG/2 ML VIAL ONE (09:52)
[2023-01-12] MEDS ORDERED: ACETAMINOPHEN INJECTION 100 ML IVPB ONE (09:53)
[2023-01-12 10:06] LABS: POTASSIUM 4.4 mmol/L (3.5-5.1)
[2023-01-12 10:07] LABS: BLOOD UREA NITROGEN 14.9 mg/dL (7-18); CALCIUM 9.6 mg/dL (8.5-10.1)
[2023-01-12 10:08] LABS: ALBUMIN 4.1 g/dl (3.4-5.0)
[2023-01-12 10:13] LABS: BILIRUBIN,TOTAL 0.4 mg/dL (0.2-1); TOT PROT 7.8 g/dl (6.4-8.2)
[2023-01-12] MEDS ORDERED: NITROGLYCERIN SUBLINGUAL 1/200 0.3 MG BTL SL ONE (10:30)
[2023-01-12] MEDS ORDERED: ASPIRIN 81 MG CHEWABLE TABLETS PO ONE (10:30)
[2023-01-12] MEDS ORDERED: ASPIRIN 81 MG CHEWABLE TABLETS ONE (10:49)
[2023-01-12 11:23] LABS: MAGNESIUM 2.1 mg/dL (1.8-2.4)
[2023-01-12 11:27] LABS: PHOSPHOROUS 3.3 mg/dL (2.5-4.9)
[2023-01-12] MEDS ORDERED: ACETAMINOPHEN 325 MG TABLET (FP) PO PRN (13:55)
[2023-01-12] MEDS ORDERED: ATORVASTATIN CA 40 MG TABLET (FP) PO SCH ×2 (20:30→22:00)
[2023-01-12] MEDS ORDERED: BICTEGRAV/EMTRICIT/TENOFOV (BIKTARVY) 50-200-25 MG TABLET PO SCH (21:00)
[2023-01-13 07:56] LABS: POTASSIUM 4.5 mmol/L (3.5-5.1)
[2023-01-13 07:57] LABS: BASO % 0.4 % (0-2.0); EOS % 3.8 % (0-4.5); HEMATOCRIT 37.4 % (32.4-45.2); LYMPH % 37.3 % (8-40); MCH 32.6 pg (25.7-33.7); MCHC 34.9 g/dl (32.0-36.0); MEAN CELL VOLUME 93.3 fl (80-96); MEAN PLT VOLUME 9.3 fl (7.5-11.1); MONO % 9.1 % (3.8-10.2); NEUT % 49.4 % (42.8-82.8); PLATELET COUNT 181 10^3/uL (134-434); RBC 4.01 M/mm3 (3.60-5.2); RDW 13.4 % (11.6-15.6)
[2023-01-13 07:58] LABS: ALBUMIN 3.6 g/dl (3.4-5.0); CALCIUM 8.8 mg/dL (8.5-10.1)
[2023-01-13 07:59] LABS: MAGNESIUM 2.1 mg/dL (1.8-2.4)
[2023-01-13 08:00] LABS: BLOOD UREA NITROGEN 15.9 mg/dL (7-18)
[2023-01-13 08:03] LABS: BILIRUBIN,TOTAL 0.3 mg/dL (0.2-1)
[2023-01-13] MEDS ORDERED: ASPIRIN 81 MG CHEWABLE TABLETS PO SCH (10:00)
[2023-01-13] MEDS ORDERED: BICTEGRAV/EMTRICIT/TENOFOV (BIKTARVY) 50-200-25 MG TABLET PO SCH (10:00)
[2023-01-13] MEDS ORDERED: ENOXAPARIN NA (PORCINE) 40 MG/0.4 ML DISP.SYRIN SQ SCH (10:00)
[2023-01-13 13:47] VITALS: BP 126/75; PULSE 64; RESP 18; TEMP 98.4
== END 2023-01-13 18:06 | disposition home or self-care (01) ==
LOC: JER 08:45 → INTOOBSV 11:57 → JERBED 11:57 → UNDOADMOB 11:57 → JERBED 13:38 → J4W 13:47 → JERBED 13:47
PROVIDERS: ADMIT Internal Medicine; ATTEND Internal Medicine
PROC: 3E033NZ Introduction of Analgesics, Hypnotics, Sedatives into Peripheral Vein, Percutaneous Approach (ICD-10-PCS; principal; 2023-01-12)
PROC: 3E023GC Introduction of Other Therapeutic Substance into Muscle, Percutaneous Approach (ICD-10-PCS; 2023-01-12)
PROC: 3E033GC Introduction of Other Therapeutic Substance into Peripheral Vein, Percutaneous Approach (ICD-10-PCS; 2023-01-12)
PROC: 3E0337Z Introduction of Electrolytic and Water Balance Substance into Peripheral Vein, Percutaneous Approach (ICD-10-PCS; 2023-01-12)
DX: R07.89 Other chest pain (principal); I10 Essential (primary) hypertension; E78.5 Hyperlipidemia, unspecified; I42.2 Other hypertrophic cardiomyopathy; B20 Human immunodeficiency virus [HIV] disease; I48.91 Unspecified atrial fibrillation; R51.9 Headache, unspecified
CPT/HCPCS: 0241U-QW; 36415; 70450-TC; 71046-TC-FY; 80053; 83735; 84100; 84443; 84484; 85025; 93005; 93010; 93306-TC; 96372; 96374; 96375; 99285-25; G0378

== ENCOUNTER 2023-06-11 16:35 | Emergency (ER) | payer OTHER, BC ==
[2023-06-11 16:45] VITALS: BP 145/69; PULSE 57; RESP 16; TEMP 98; BMI 28.5
[2023-06-11] MEDS ORDERED: ACETAMINOPHEN 1000 MG/100 ML BAG IVPB ONE (18:13)
[2023-06-11] MEDS ORDERED: methylPREDNISolone NA SUCC 125 MG/2 ML VIAL IVPB ONE (18:13)
[2023-06-11] MEDS ORDERED: ACETAMINOPHEN INJECTION 100 ML IVPB ONE (18:31)
[2023-06-11] MEDS ORDERED: methylPREDNISolone NA SUCC 125 MG/2 ML VIAL ONE (18:31)
[2023-06-11] MEDS ORDERED: SODIUM CHLORIDE 0.9% 1000 ML INFUS.BAG IV ONE (18:32)
[2023-06-11 18:40] LABS: BASO % 0.5 % (0-2.0); EOS % 1.4 % (0-4.5); HEMATOCRIT 39.9 % (32.4-45.2); HEMOGLOBIN 13.7 GM/dL (10.7-15.3); LYMPH % 38.4 % (8-40); MCH 32.2 pg (25.7-33.7); MCHC 34.4 g/dl (32.0-36.0); MEAN CELL VOLUME 93.4 fl (80-96); MEAN PLT VOLUME 8.1 fl (7.5-11.1); MONO % 6.6 % (3.8-10.2); NEUT % 53.1 % (42.8-82.8); PLATELET COUNT 223 10^3/uL (134-434); RBC 4.27 M/mm3 (3.60-5.2); RDW 13.3 % (11.6-15.6); WHITE BLOOD COUNT 5.7 K/mm3 (4.0-10.0)
[2023-06-11 20:01] LABS: CHLORIDE 107 mmol/L (98-107); POTASSIUM 3.9 mmol/L (3.5-5.1); SODIUM 141 mmol/L (136-145)
[2023-06-11 20:03] LABS: CALCIUM 9.3 mg/dL (8.5-10.1)
[2023-06-11 20:04] LABS: ALBUMIN 4.3 g/dl (3.4-5.0); ANION GAP 7 mmol/L (4-13); BLOOD UREA NITROGEN 15.3 mg/dL (7-18); CO2 27 mmol/L (21-32); GLUCOSE,RANDOM 117 mg/dL (74-106)
[2023-06-11 20:07] LABS: CREATININE 1.1 mg/dL (0.55-1.3); SGOT/AST 20 U/L (15-37); SGPT/ALT 30 U/L (13-61)
[2023-06-11 20:08] LABS: BILIRUBIN,TOTAL 0.4 mg/dL (0.2-1); TOT PROT 8.2 g/dl (6.4-8.2)
[2023-06-11 20:10] LABS: ALK PHOS 78 U/L (45-117)
== END 2023-06-11 20:47 | disposition home or self-care (01) ==
LOC: JERFT 16:35 → JER 16:35 → JERFT 20:47
PROC: 3E033NZ Introduction of Analgesics, Hypnotics, Sedatives into Peripheral Vein, Percutaneous Approach (ICD-10-PCS; principal; 2023-06-11)
PROC: 3E033GC Introduction of Other Therapeutic Substance into Peripheral Vein, Percutaneous Approach (ICD-10-PCS; 2023-06-11)
DX: M79.10 Myalgia, unspecified site (principal); M25.50 Pain in unspecified joint; T88.1XXA Other complications following immunization, not elsewhere classified, initial encounter
CPT/HCPCS: 36415; 80053; 85025; 85651; 86140; 86235; 86431; 86618; 96374; 96375; 99284-25

== ENCOUNTER 2023-06-13 11:46 | Emergency (ER) | payer OTHER, BC ==
[2023-06-13 12:03] VITALS: BP 138/72; PULSE 54; RESP 18; TEMP 98.4; BMI 28.3
[2023-06-13] MEDS ORDERED: ACETAMINOPHEN 500 MG TABLET (FP) PO ONE (12:35)
[2023-06-13] MEDS ORDERED: ACETAMINOPHEN 500 MG TABLET (FP) ONE (13:04)
[2023-06-13] MEDS ORDERED: KETOROLAC TROMETHAMINE 30 MG/1 ML VIAL IM ONE (15:42)
[2023-06-13] MEDS ORDERED: KETOROLAC TROMETHAMINE 15 MG/ML VIAL ONE (15:43)
== END 2023-06-13 16:42 | disposition home or self-care (01) ==
LOC: JER 11:46
PROC: 3E0233Z Introduction of Anti-inflammatory into Muscle, Percutaneous Approach (ICD-10-PCS; principal; 2023-06-13)
DX: M25.561 Pain in right knee (principal); M25.562 Pain in left knee; R26.89 Other abnormalities of gait and mobility
CPT/HCPCS: 73562-TC-LT-FY; 73562-TC-RT-FY; 93970-TC; 99284-25

== ENCOUNTER 2023-07-20 18:33 | Inpatient (IN) | payer OTHER, BC ==
[2023-07-20] MEDS ORDERED: ACETAMINOPHEN 500 MG TABLET (FP) PO ONE (19:49)
[2023-07-20] MEDS ORDERED: ALPRAZolam 0.25 MG TABLET PO PRN (19:49)
[2023-07-20] MEDS ORDERED: ACETAMINOPHEN 325 MG TABLET (FP) ONE (19:57)
[2023-07-20] MEDS ORDERED: ALPRAZolam 0.25 MG TABLET ONE (19:58)
[2023-07-20 20:27] LABS: BASO % 0.4 % (0-2.0); EOS % 2.2 % (0-4.5); HEMATOCRIT 36.5 % (32.4-45.2); HEMOGLOBIN 12.6 GM/dL (10.7-15.3); LYMPH % 33.5 % (8-40); MCH 32.5 pg (25.7-33.7); MCHC 34.5 g/dl (32.0-36.0); MEAN CELL VOLUME 94.3 fl (80-96); MEAN PLT VOLUME 8.7 fl (7.5-11.1); MONO % 10.1 % (3.8-10.2); NEUT % 53.8 % (42.8-82.8); PLATELET COUNT 209 10^3/uL (134-434); RBC 3.88 M/mm3 (3.60-5.2); RDW 13.6 % (11.6-15.6); WHITE BLOOD COUNT 6.2 K/mm3 (4.0-10.0)
[2023-07-20 20:38] LABS: INR 0.95 (0.83-1.09)
[2023-07-20 20:40] LABS: ACTIVATED PTT 27.9 SECONDS (25.2-36.5)
[2023-07-20 20:52] LABS: POTASSIUM 3.7 mmol/L (3.5-5.1)
[2023-07-20 20:54] LABS: CALCIUM 8.7 mg/dL (8.5-10.1)
[2023-07-20 20:55] LABS: ALBUMIN 3.8 g/dl (3.4-5.0); BLOOD UREA NITROGEN 15.5 mg/dL (7-18)
[2023-07-20 21:00] LABS: BILIRUBIN,TOTAL 0.3 mg/dL (0.2-1)
[2023-07-20] MEDS ORDERED: ASPIRIN 81 MG CHEWABLE TABLETS PO ONE (21:25)
[2023-07-20] MEDS ORDERED: ASPIRIN 81 MG CHEWABLE TABLETS ONE (21:49)
[2023-07-21] MEDS: ENOXAPARIN NA (PORCINE) 40 MG/0.4 ML DISP.SYRIN SQ SCH ×2 (01:12→10:35)
[2023-07-21 02:47] VITALS: BMI 26.9
[2023-07-21 07:37] LABS: HEMATOCRIT 36.9 % (32.4-45.2); HEMOGLOBIN 12.6 GM/dL (10.7-15.3); MCH 32.5 pg (25.7-33.7); MCHC 34.1 g/dl (32.0-36.0); MEAN CELL VOLUME 95.2 fl (80-96); MEAN PLT VOLUME 9.1 fl (7.5-11.1); PLATELET COUNT 180 10^3/uL (134-434); RBC 3.87 M/mm3 (3.60-5.2); RDW 13.6 % (11.6-15.6); WHITE BLOOD COUNT 3.8 K/mm3 (4.0-10.0)
[2023-07-21] MEDS ORDERED: BICTEGRAV/EMTRICIT/TENOFOV (BIKTARVY) 50-200-25 MG TABLET PO SCH (08:00)
[2023-07-21 08:01] LABS: POTASSIUM 3.9 mmol/L (3.5-5.1)
[2023-07-21 08:03] LABS: ALBUMIN 3.6 g/dl (3.4-5.0)
[2023-07-21 08:04] LABS: CALCIUM 8.4 mg/dL (8.5-10.1); MAGNESIUM 2.2 mg/dL (1.8-2.4)
[2023-07-21 08:05] LABS: BLOOD UREA NITROGEN 13.5 mg/dL (7-18)
[2023-07-21 08:06] LABS: CREATININE 0.9 mg/dL (0.55-1.3)
[2023-07-21 08:08] LABS: TOT PROT 6.6 g/dl (6.4-8.2)
[2023-07-21 08:09] LABS: PHOSPHOROUS 3.4 mg/dL (2.5-4.9)
[2023-07-21 08:10] LABS: BILIRUBIN,TOTAL 0.4 mg/dL (0.2-1)
[2023-07-21] MEDS ORDERED: ASPIRIN 81 MG CHEWABLE TABLETS PO SCH (10:00)
[2023-07-21] MEDS ORDERED: METOPROLOL SUCCINATE 100 MG, METOPROLOL SUCCINATE 25 MG PO SCH (10:00)
[2023-07-21 13:16] VITALS: RESP 18
[2023-07-21 14:54] VITALS: BP 140/74; PULSE 61; TEMP 98
[2023-07-21] MEDS ORDERED: ATORVASTATIN CA 40 MG TABLET (FP) PO SCH (22:00)
== END 2023-07-21 15:50 | disposition home or self-care (01) | DRG 281 ==
LOC: JER 18:33 → JERBED 21:49 → J4S 07-21 02:09
PROVIDERS: ADMIT Internal Medicine; ATTEND Internal Medicine
DX: I21.4 Non-ST elevation (NSTEMI) myocardial infarction (principal); B20 Human immunodeficiency virus [HIV] disease; I42.2 Other hypertrophic cardiomyopathy; I10 Essential (primary) hypertension; E78.5 Hyperlipidemia, unspecified
CPT/HCPCS: 36415; 71046-TC-FY; 80053; 80061; 83036; 83735; 84100; 84484; 85025; 85027; 85610; 85730; 93005; 93010; 95811; 99285-25

== ENCOUNTER 2024-01-30 12:42 | Emergency (ER) | payer OTHER, BC ==
[2024-01-30 12:55] VITALS: BP 130/72; PULSE 63; RESP 18; TEMP 98.8; BMI 28.5
[2024-01-30] MEDS ORDERED: IBUPROFEN 600 MG TABLET (FP) PO ONE (14:39)
[2024-01-30] MEDS ORDERED: DEXAMETHASONE SOD PHOSPHATE 10 MG/1 ML VIAL ONE (14:39)
[2024-01-30] MEDS: IBUPROFEN 600 MG TABLET (FP) PO ONE (14:43)
[2024-01-30] MEDS: DEXAMETHASONE SOD PHOSPHATE 10 MG/1 ML VIAL IM ONE (14:43)
== END 2024-01-30 15:17 | disposition home or self-care (01) ==
LOC: JERFT 12:42
PROC: 3E023GC Introduction of Other Therapeutic Substance into Muscle, Percutaneous Approach (ICD-10-PCS; principal; 2024-01-30)
DX: J03.90 Acute tonsillitis, unspecified (principal); R13.10 Dysphagia, unspecified
CPT/HCPCS: 87651; 96372; 99284-25; J1100

== ENCOUNTER 2024-04-28 11:23 | Emergency (ER) | payer OTHER, BC ==
[2024-04-28 11:43] VITALS: BP 143/84; PULSE 55; RESP 17; TEMP 98.4; BMI 26.9
== END 2024-04-28 12:30 | disposition home or self-care (01) ==
LOC: JERFT 11:23
DX: Z04.89 Encounter for examination and observation for other specified reasons (principal); W57.XXXA Bitten or stung by nonvenomous insect and other nonvenomous arthropods, initial encounter
CPT/HCPCS: 99282-25